=== PATIENT | male | born 1945 | race Caucasian/White ===

== ENCOUNTER 2022-07-29 15:51 | Inpatient (IN) | payer MEDICARE, OTHER ==
[2022-07-29] MEDS ORDERED: SODIUM CHLORIDE 0.9% 1,000 ML IV STA ×3 (16:18→17:36)
[2022-07-29 16:32] LABS: Basophils % (A) 0 %; Eosinophils # (A) 0.1 k/uL (0-0.7); Eosinophils % (A) 1 %; HCT 54.9 % (39.0-53.0); Lymphocytes % (A) 10 %; MCHC 32.8 g/dL (31.0-37.0); MCV 94.3 fL (80.0-100.0); Mean Platelet Volume 8.8; Monocytes # (A) 0.7 k/uL (0-1.0); Monocytes % (A) 4 %; Neutrophils # (A) 16.9 k/uL (1.3-7.7); Neutrophils % (A) 85 %; Platelet Count 431 k/uL (150-450); RBC 5.83 m/uL (4.30-5.90); RDW 13.2 % (11.5-15.5); WBC 19.9 k/uL (3.8-10.6)
--- NOTE | 2022-07-29 16:37 | XR ---
EXAMINATION TYPE: XR chest 2V DATE OF EXAM: 07/29/2022 4:32 PM COMPARISON: None TECHNIQUE: XR chest 2V Frontal and lateral views of the chest. CLINICAL INDICATION:Male, 76 years old with history of fall; FINDINGS: Lungs/Pleura: There is no evidence of pleural effusion, focal consolidation, or pneumothorax. Elevat ion of the right hemidiaphragm. Pulmonary vascularity: Unremarkable. Heart/mediastinum: Cardiomediastinal silhouette is unremarkable. Musculoskeletal: No acute osseous pathology. IMPRESSION: 1. No acute cardiopulmonary disease/process. 2. Elevation the right hemidiaphragm which could relate to diaphragmatic paralysis versus hernia. Th is can be further evaluated with sniff test as clinically indicated.
--- NOTE | 2022-07-29 16:46 | ED ---
Weakness HPI - General Chief complaint: Weakness Stated complaint: weakness/dehydrated Time Seen by Provider: 07/29/22 16:07 Source: EMS Mode of arrival: EMS Limitations: altered mental status - History of Present Illness Initial comments: Dictation was produced using [employer] dictation software. please excuse any grammatical, word or spelling errors. Chief Complaint: 76-year-old male with no known past medical history presents to the emergency department with generalized weakness History of Present Illness: 76-year-old male presents emergency Department after being found down at home. Patient was last seen at home about 10 days ago by friend. Patient does not have family lives by himself. Friends noted that he was picking up his phone call so they went to check on him. If on Friday ground. Some known how long patient was on the floor for. Patient states that he feels really weak. Denies any asymmetrical numbness tingling paresthesias. Patient does not have a history of atrial fibrillation. The ROS documented in this emergency department record has been reviewed and confirmed by me. Those systems with pertinent positive or negative responses have been documented in the HPI. All other systems are other negative and/or noncontributory. - Related Data Home Medications Medication Instructions Recorded Confirmed No Known Home Medications 07/29/22 07/29/22 Allergies Allergy/AdvReac Type Severity Reaction Status Date / Time No Known Allergies Allergy Verified 07/29/22 17:44 Review of Systems ROS Statement: Those systems with pertinent positive or pertinent negative responses have been documented in the HPI. ROS Other: All systems not noted in ROS Statement are negative. General Exam - General Exam Comments Initial Comments: PHYSICAL EXAM: General Impression: Alert and oriented x3, not in acute distress, malodorous HEENT: Normocephalic atraumatic, extra-ocular movements intact, pupils equal and reactive to light bilaterally, dry mucous membranes Cardiovascular: Tachycardic Chest: Able to complete full sentences, no retractions, no tachypnea Abdomen: abdomen soft, non-tender, non-distended, no organomegaly Musculoskeletal: Pulses present and equal in all extremities, no peripheral edema Motor: no focal deficits noted Neurological: CN II-XII grossly intact, no focal motor or sensory deficits noted Skin: Intact with no visualized rashes Psych: Normal affect and mood Limitations: altered mental status Course Vital Signs 07/29/22 07/29/2223 15:57 16:01 17:24 Temperature 98 F 98 F Pulse Rate 156 H 147 H Respiratory 20 18 Rate Blood Pressure 121/100 97/74 O2 Sat by Pulse 88 L 98 Oximetry 07/29/22 17:56 Temperature Pulse Rate 156 H Respiratory Rate Blood Pressure 107/86 O2 Sat by Pulse Oximetry EKG Findings - EKG Comments: EKG Findings:: My EKG interpretation: Ventricular rate 156, A. fib with RVR, QRS 85, QTC 375. No OH prolongation, no QTC prolongation, lateral ST depressions that V3 to V6. No old EKG for comparison. Suspicious for a rate-dependent ischemia Medical Decision Making - Medical Decision Making Case discussed with neurologist, at 6:[address] Jimenez was contacted in regards to starting patient on heparin in light of CT imaging findings. Dr. James reviewed the films and recommended that patient be started on heparin without a bolus Was pt. sent in by a medical professional or institution (, PA, ACTIVITIES ASSISTANT, urgent care, hospital, or half-way...) When possible be specific @ -No Did you speak to anyone other than the patient for history (EMS, parent, family, police, friend...)? What history was obtained from this source @ -Friends at the bedside. They're at the individuals that found patient on the ground at his home Did you review nursing and triage notes (agree or disagree)? Why? @ -I reviewed and agree with nursing and triage notes Were old charts reviewed (outside hosp., previous admission, EMS record, old EKG, old radiological studies, urgent care reports/EKG's, half-way records)? Report findings @ -No old charts were reviewed Differential Diagnosis (chest pain, altered mental status, abdominal pain women, abdominal pain men, vaginal bleeding, musculoskeletal, weakness, fever, dyspnea, syncope, headache, dizziness, GI bleed, back pain, seizure, CVA, palpatations, mental health)? @ -Differential Weakness: Hypoglycemia, shock, sepsis, hyponatremia, anemia, infection, MO, ETOH, adverse medicine reaction, overdose, stroke, this is not meant to be an all-inclusive list. EKG interpreted by me (3pts min.). @ -See above X-rays interpreted by me (1pt min.). @ -No acute processes CT interpreted by me (1pt min.). @ -Left occipital hyperdensity U/S interpreted by me (1pt. min.). @ -None done What testing was considered but not performed or refused? (CT, X-rays, U/S, labs)? Why? @ -None What meds were considered but not given or refused? Why? @ -None Did you discuss the management of the patient with other professionals (professionals i.e. DrManan, PA, ACTIVITIES ASSISTANT, lab, RT, psych nurse, social media project manager, dough molder hand, teacher, housing management officer, case advocate)? Give summary @ -Case discussed with neurologist on-call regarding initiating heparin therapy for new onset A. fib. Case also discussed with Dr. Epps for admission Was smoking cessation discussed for >3mins.? @ -No Was critical care preformed (if so, how long)? @ -33 minutes Were there social determinants of health that impacted care today? How? (Homelessness, low income, unemployed, alcoholism, drug addiction, transport ation, low edu. Level, literacy, decrease access to med. care, senior living, rehab)? @ -Lives alone Was there de-escalation of care discussed even if they declined (Discuss DNR or withdrawal of care, Hospice)? DNR status @ -No What co-morbidities impacted this encounter? (DM, HTN, Smoking, COPD, CAD, Cancer, CVA, ARF, Chemo, Hep., AIDS, mental health diagnosis, sleep apnea, morbid obesity)? @ -None Was patient admitted / discharged? Hospital course, mention meds given and route, prescriptions, significant lab abnormalities, going to OR and other pertinent info. @ -76-year-old male found down after having not being seen for approximately 10 days. Landin the emergency department via EMS. Found to be in new-onset A. fib. CT shows hypodensities in the brain suspicious for ischemic strokes. Patient case was discussed with neurologist who recommends starting heparin. Laboratory evaluation obtained. Leukocytosis of 19.9 of unclear significance. He does not have any localizing symptoms to suggest sepsis. Coag panel is unremarkable. Sodium low 152. BUN of 27. Lactic acid of 5.3. Troponin 0.057 prematurity peptide of 2000. Patient started on amiodarone after having received 2 L normal saline bolus. 4 panel viral PCR is negative. Patient be admitted with consultation cardiology. Undiagnosed new problem with uncertain prognosis? @ -New onset A. fib Drug Therapy requiring intensive monitoring for toxicity (Heparin, Nitro, Insulin, Cardizem)? @ -Yes, heparin and amiodarone Were any procedures done? @ -No Diagnosis/symptom? Acute, or Chronic, or Acute on Chronic? Uncomplicated (without systemic symptoms) or Complicated (systemic symptoms)? @ -1.New onset atrial fibrillation, complicated Side effects of treatment? @ -No Exacerbation, Progression, or Severe Exacerbation? @ -No Poses a threat to life or bodily function? How? (Chest pain, USA, MO, pneumonia, PE, COPD, DKA, ARF, appy, cholecystitis, CVA, Diverticulitis, Homicidal, Suicidal, threat to staff... and all critical care pts) @ -yes - Lab Data Result diagrams: 07/29/22 16:21 07/29/22 16:21 Lab Results 07/29/22 07/29/22 07/29/22 Range/Units 16:21 16:21 16:21 WBC 19.9 H (3.8-10.6) k/uL RBC 5.83 (4.30-5.90) m/uL Hgb 18.0 H (13.0-17.5) gm/dL Hct 54.9 H (39.0-53.0) % MCV 94.3 (80.0-100.0) fL MCH 31.0 (25.0-35.0) pg MCHC 32.8 (31.0-37.0) g/dL RDW 13.2 (11.5-15.5) % Plt Count 431 (150-450) k/uL MPV 8.8 Neutrophils % 85 % Lymphocytes % 10 % Monocytes % 4 % Eosinophils % 1 % Basophils % 0 % Neutrophils # 16.9 H (1.3-7.7) k/uL Lymphocytes # 2.0 (1.0-4.8) k/uL Monocytes # 0.7 (0-1.0) k/uL Eosinophils # 0.1 (0-0.7) k/uL Basophils # 0.0 (0-0.2) k/uL PT 12.1 H (9.0-12.0) sec INR 1.2 H (<1.2) APTT 21.5 L (22.0-30.0) sec Sodium 152 H (137-145) mmol/L Potassium 4.1 (3.5-5.1) mmol/L Chloride 113 H (98-107) mmol/L Carbon Dioxide 25 (22-30) mmol/L Anion Gap 14 mmol/L BUN 27 H (9-20) mg/dL Creatinine 1.01 (0.66-1.25) mg/dL Est GFR (CKD-EPI)AfAm 83 (>60 ml/min/1.73 sqM) Est GFR (CKD-EPI)NonAf 72 (>60 ml/min/1.73 sqM) Glucose 156 H (74-99) mg/dL Plasma Lactic Acid Hema (0.7-2.0) mmol/L Calcium 10.4 H (8.4-10.2) mg/dL Magnesium 2.5 H (1.6-2.3) mg/dL Total Bilirubin 1.7 H (0.2-1.3) mg/dL AST 66 H (17-59) U/L ALT 77 H (4-49) U/L Alkaline Phosphatase 121 (38-126) U/L Creatine Kinase 97 (55-170) U/L Troponin I (0.000-0.034) ng/mL NT-Pro-B Natriuret Pep pg/mL Total Protein 8.0 (6.3-8.2) g/dL Albumin 4.5 (3.5-5.0) g/dL TSH 2.550 (0.465-4.680) mIU/L Influenza Type A (PCR) (Not Detectd) Influenza Type B (PCR) (Not Detectd) RSV (PCR) (Not Detectd) SARS-CoV-2 (PCR) (Not Detectd) 07/29/22 07/29/22 07/29/22 Range/Units 16:21 16:21 16:21 WBC (3.8-10.6) k/uL RBC (4.30-5.90) m/uL Hgb (13.0-17.5) gm/dL Hct (39.0-53.0) % MCV (80.0-100.0) fL MCH (25.0-35.0) pg MCHC (31.0-37.0) g/dL RDW (11.5-15.5) % Plt Count (150-450) k/uL MPV Neutrophils % % Lymphocytes % % Monocytes % % Eosinophils % % Basophils % % Neutrophils # (1.3-7.7) k/uL Lymphocytes # (1.0-4.8) k/uL Monocytes # (0-1.0) k/uL Eosinophils # (0-0.7) k/uL Basophils # (0-0.2) k/uL PT (9.0-12.0) sec INR (<1.2) APTT (22.0-30.0) sec Sodium (137-145) mmol/L Potassium (3.5-5.1) mmol/L Chloride (98-107) mmol/L Carbon Dioxide (22-30) mmol/L Anion Gap mmol/L BUN (9-20) mg/dL Creatinine (0.66-1.25) mg/dL Est GFR (CKD-EPI)AfAm (>60 ml/min/1.73 sqM) Est GFR (CKD-EPI)NonAf (>60 ml/min/1.73 sqM) Glucose (74-99) mg/dL Plasma Lactic Acid Hema 5.3 H* (0.7-2.0) mmol/L Calcium (8.4-10.2) mg/dL Magnesium (1.6-2.3) mg/dL Total Bilirubin (0.2-1.3) mg/dL AST (17-59) U/L ALT (4-49) U/L Alkaline Phosphatase (38-126) U/L Creatine Kinase (55-170) U/L Troponin I 0.057 H* (0.000-0.034) ng/mL NT-Pro-B Natriuret Pep 2990 pg/mL Total Protein (6.3-8.2) g/dL Albumin (3.5-5.0) g/dL TSH (0.465-4.680) mIU/L Influenza Type A (PCR) (Not Detectd) Influenza Type B (PCR) (Not Detectd) RSV (PCR) (Not Detectd) SARS-CoV-2 (PCR) (Not Detectd) 07/29/22 Range/Units 17:11 WBC (3.8-10.6) k/uL RBC (4.30-5.90) m/uL Hgb (13.0-17.5) gm/dL Hct (39.0-53.0) % MCV (80.0-100.0) fL MCH (25.0-35.0) pg MCHC (31.0-37.0) g/dL RDW (11.5-15.5) % Plt Count (150-450) k/uL MPV Neutrophils % % Lymphocytes % % Monocytes % % Eosinophils % % Basophils % % Neutrophils # (1.3-7.7) k/uL Lymphocytes # (1.0-4.8) k/uL Monocytes # (0-1.0) k/uL Eosinophils # (0-0.7) k/uL Basophils # (0-0.2) k/uL PT (9.0-12.0) sec INR (<1.2) APTT (22.0-30.0) sec Sodium (137-145) mmol/L Potassium (3.5-5.1) mmol/L Chloride (98-107) mmol/L Carbon Dioxide (22-30) mmol/L Anion Gap mmol/L BUN (9-20) mg/dL Creatinine (0.66-1.25) mg/dL Est GFR (CKD-EPI)AfAm (>60 ml/min/1.73 sqM) Est GFR (CKD-EPI)NonAf (>60 ml/min/1.73 sqM) Glucose (74-99) mg/dL Plasma Lactic Acid Hema (0.7-2.0) mmol/L Calcium (8.4-10.2) mg/dL Magnesium (1.6-2.3) mg/dL Total Bilirubin (0.2-1.3) mg/dL AST (17-59) U/L ALT (4-49) U/L Alkaline Phosphatase (38-126) U/L Creatine Kinase (55-170) U/L Troponin I (0.000-0.034) ng/mL NT-Pro-B Natriuret Pep pg/mL Total Protein (6.3-8.2) g/dL Albumin (3.5-5.0) g/dL TSH (0.465-4.680) mIU/L Influenza Type A (PCR) Not Detected (Not Detectd) Influenza Type B (PCR) Not Detected (Not Detectd) RSV (PCR) Not Detected (Not Detectd) SARS-CoV-2 (PCR) Not Detected (Not Detectd) Disposition Clinical Impression: Afib Disposition: ADMITTED IP TO THIS [facility] Condition: Serious Referrals: None,Stated [Primary Care Provider] - 1-2 days Decision Time: 18:23
[2022-07-29 16:59] LABS: Albumin 4.5 g/dL (3.5-5.0); Calcium 10.4 mg/dL (8.4-10.2); Magnesium 2.5 mg/dL (1.6-2.3); Potassium 4.1 mmol/L (3.5-5.1); Total Bilirubin 1.7 mg/dL (0.2-1.3)
[2022-07-29 17:08] LABS: INR 1.2 (<1.2); Partial Thromboplastin Time 21.5 sec (22.0-30.0); Prothrombin Time 12.1 sec (9.0-12.0)
--- NOTE | 2022-07-29 17:29 | CT ---
EXAMINATION TYPE: CT brain usha shirley DATE OF EXAM: 07/29/2022 COMPARISON: None HISTORY: fall CT DLP: 1393.5 mGycm, Automated exposure control for dose reduction was used. CONTRAST: Patient injected with 0 mL of Isovue 300. CT of the brain is performed utilizing 3 mm thick sections through the posterior fossa and 3 mm thick sections through the remaining calvarium. Study is performed within 24 hours of arrival to the hospital. No abnormal hyperdensity is present to suggest an acute intracranial hemorrhage. No mass lesion is evident. There is mild scattered periventricular white matter hypodensity, likely on the basis of chronic whit e matter ischemic change. There is hypodensity through the left thalamus of indeterminate age. Lacuna r infarct or chronic white matter changes could be considered. There is hypodensity within the left occipital lobe with some local effacement of sulci. Consider acu te occipital lobe infarct. Ventricles and sulci are prominent for the patient age. Paranasal sinuses and mastoid air cells within the [id number] are clear. IMPRESSIONS: 1. Hypodensity within the left occipital lobe with effacement of adjacent sulci. Consider acute infar ct. This could be followed with MRI. 2. Hypodensity within the left thalamus is of indeterminate age. This could be chronic white matter i schemic changes. Acute lacunar infarct can be considered. 3. Additional periventricular chronic appearing white matter ischemic-type changes. CT cervical spine. COMPARISON: None CT of the cervical spine is performed in the axial plane at 2 mm thick sections. Reconstructed image s in the coronal, and sagittal plane are reviewed on the computer. No acute fractures are evident. Vertebral body heights are preserved. No spinal canal stenosis is evident. Uncovertebral joint hypertrophy and facet hypertrophy is contributing to severe foraminal stenosis. T his is notable at C3-4 on the left, right C4-5 right and to a lesser degree left C5-6 and moderate C6 -7 foraminal stenosis. Anterior vertebral body spurring is present C4-C7. There is narrowing of disc height at C5-6 C6-7 and C7-T1 prevertebral space is normal. There is a mild kyphosis through the cerv ical spine. Posterior spinal lamellar line is intact. IMPRESSIONS: 1. No acute osseous abnormality cervical spine. 2. Cervical kyphosis which could be related to patient positioning or muscle spasm. 3. Severe foraminal stenosis discussed above.
[2022-07-29] MEDS ORDERED: DEXTROSE 5% IN WATER 100 ML with AMIODARONE 150 MG IV ONE (17:45)
[2022-07-29] MEDS ORDERED: AMIODARONE 360 MG in DEXTROSE 5% IN WATER 200 ML IV ONE ×2 (18:00)
[2022-07-29] MEDS ORDERED: HEPARIN SODIUM 1,000 UN/ML (10ML VL) IV PRN (18:12)
[2022-07-29] MEDS ORDERED: NALOXONE 0.4 MG/ML 1 ML VIAL IV PRN (18:21)
[2022-07-29] MEDS ORDERED: ONDANSETRON 4 MG/2 ML VIAL IVP PRN (18:21)
[2022-07-29] MEDS ORDERED: ASPIRIN 81 MG PO STA (18:22)
[2022-07-29] MEDS: PANTOPRAZOLE 40 MG/10 ML VIAL IV SCH (18:50)
[2022-07-29] MEDS: HEPARIN SOD,PORK IN 0.45% NACL 25,000 UNIT in 0.45% NACL 1 250ML.BAG IV SCH (18:53)
[2022-07-29] MEDS ORDERED: cefTRIAXone 1,000 MG VIAL (IM USE) IM SCH (20:00)
[2022-07-29] MEDS: SODIUM CHLORIDE 0.9% 1,000 ML IV SCH (21:40)
--- NOTE | 2022-07-29 21:57 | CT ---
EXAMINATION TYPE: CT chest wo con DATE OF EXAM: 07/29/2022 COMPARISON: None HISTORY: hypoxia CT DLP: 463.6. mGycm, Automated exposure control for dose reduction was used. CONTRAST: Performed injected with 0 mL of Isovue 300. TECHNIQUE: Axial images were obtained at 5 mm thick sections. Reconstructed images are reviewed on [employer] computer in the coronal plane. FINDINGS: Portion of the thyroid visualized is normal. No suspicious lung nodules or focal infiltrates are present. No enlarged mediastinal or hilar adenopathy is evident. The ascending aorta diameter at the level o f the main pulmonary artery is 4.2 cm. The main pulmonary artery diameter at the bifurcation is 4.1 cm. Coronary artery calcifications present. There appears to be some tortuosity of the esophagus. Limited CT sections are obtained through the up per abdomen. There is a cyst within the inferior right tip of the liver. IMPRESSIONS: 1. No acute pulmonary process radiographically apparent.
[2022-07-30] MEDS ORDERED: AMIODARONE 450 MG in DEXTROSE 5% IN WATER 250 ML IV SCH ×2
[2022-07-30] MEDS: SODIUM CHLORIDE 0.9% 1,000 ML IV SCH ×3 (02:35→18:27)
[2022-07-30] MEDS ORDERED: IPRATROPIUM-ALBUTEROL 3 ML NEB INHALATION PRN (03:55)
--- NOTE | 2022-07-30 04:05 | P.CNPUL ---
History of Present Illness Consult date: 07/30/22 Requesting physician: Alpesh Epps Reason for consult: hypoxemia Chief complaint: Generalized weakness History of present illness: I am seeing this patient in new consultation today 07/30/2022 in the emergency room for increased oxygen demands. Patient is a 76-year-old male who is brought in by his friends yesterday after being found down at his home. Patient is currently confused and a poor historian. Apparently, the patient was last seen well 10 days ago by his friends. Patient does not have any family and lives at home alone. He reportedly has not been to a doctor in some time. He is a current smoker. On arrival to the emergency room, patient was found to be in atrial fibrillation with rapid ventricular rate. He was started on amiodarone which is currently infusing at a rate of 0.5 mg/m. Patient also has low intensity heparin infusing at 1143 units per hour. Most recent aPTT was subtherapeutic at 35.8. Troponins were mildly elevated at 0.057. NT proBNP mildly elevated at 2990. He was also hypoxic on arrival, and is currently on 3 L nasal cannula oxygenating at 100%. This could probably be weaned down. Initial chest x-ray showed no acute cardiopulmonary process with some elevation of the right hemidiaphragm which could be related to diaphragmatic paralysis versus hernia. A follow-up chest CT also showed no acute cardiopulmonary process. He was negative for COVID-19, influenza, RSV. Procalcitonin level was low at 0.07. Patient's CT of the brain and C-spine without contrast showed a hypodense area within the left occipital lobe with effacement of adjacent foci and could indicate acute infarct. There was also a hypodense area within the left thalamus of indeterminate age. Recommended MRI follow-up. Patient's CBC on arrival showed some leukocytosis with a WBC count of 19.9, hemoglobin 18, hematocrit 54.9, platelets 431,000. Patient's BMP on arrival showed a sodium 152, potassium 4.1, chloride 113, serum CO2 25, BUN 27, creatinine 1.01, glucose 156. Lactic acid level was elevated on admission, and is down to 1.2. Patient was given 2 L normal saline bolus in the emergency room. No IV maintenance fluids are infusing. Currently, patient's vital signs are stable. Review of Systems Unable to obtain a review of systems due to patient being confused Medications and Allergies Home Medications Medication Instructions Recorded Confirmed Type No Known Home Medications 07/29/22 07/29/22 History Allergies Allergy/AdvReac Type Severity Reaction Status Date / Time No Known Allergies Allergy Verified 07/29/22 17:44 Physical Exam Vitals: Vital Signs Temp Pulse Resp BP Pulse Ox 07/30/22 02:00 105 H 15 124/99 97 07/29/22 23:46 116 H 15 164/112 100 07/29/22 23:00 134 H 15 98 07/29/22 20:00 133 H 20 144/78 94 L 07/29/22 17:56 156 H 107/86 07/29/22 17:24 147 H 18 97/74 98 07/29/22 16:01 98 F 156 H 20 121/100 88 L 07/29/22 15:57 98 F Intake and Output 07/29/22 07/29/22 07/30/22 14:59 22:59 06:59 Intake Total 74.628 Balance 74.628 Intake: Intake, IV Titration 74.628 Amount Heparin Sod,Pork in 0.45% 74.628 NaCl 25,000 unit In 0.45 % NaCl 1 250ml.bag @ 12 UNITS/KG/HR 9.798 mls/hr IV .Q24H [facility] Rx#: [id number] Other: Weight 81.647 kg GENERAL EXAM: Alert but disoriented 76-year-old male, appearing disheveled, he is comfortable in no apparent distress. HEAD: Normocephalic and atraumatic EYES: Normal reaction of pupils, equal size. NOSE: Clear with pink turbinates. THROAT: No erythema or exudates. NECK: No masses, no JVD. CHEST: No chest wall deformity. LUNGS: Equal air entry with no crackles, wheeze, rhonchi or dullness. On 3 L nasal cannula. No conversational dyspnea or accessory muscle use.. CVS: S1 and S2 normal with no audible murmur, regular rhythm. No extra heart sounds ABDOMEN: No hepatosplenomegaly, active bowel sounds, no guarding or rigidity. SPINE: No scoliosis or deformity SKIN: No rashes CENTRAL NERVOUS SYSTEM: No focal deficits, tone is normal in all 4 extremities. He is disoriented 2 EXTREMITIES: There is no peripheral edema, clubbing, or cyanosis. Peripheral pu lses are intact. Results - Laboratory Findings CBC and BMP: 07/30/22 08:27 07/30/22 08:27 PT/INR, D-dimer PT 12.1 sec (9.0-12.0) H 07/29/22 16:21 INR 1.2 (<1.2) H 07/29/22 16:21 Abnormal lab findings: Abnormal Labs 07/29/22 07/29/22 07/29/22 16:21 16:21 16:21 WBC 19.9 H Hgb 18.0 H Hct 54.9 H Neutrophils # 16.9 H PT 12.1 H INR 1.2 H APTT 21.5 L Sodium 152 H Chloride 113 H BUN 27 H Glucose 156 H Plasma Lactic Acid Hema Calcium 10.4 H Magnesium 2.5 H Total Bilirubin 1.7 H AST 66 H ALT 77 H Troponin I 07/29/22 07/29/22 07/29/22 16:21 16:21 19:55 WBC Hgb Hct Neutrophils # PT INR APTT Sodium Chloride BUN Glucose Plasma Lactic Acid Hema 5.3 H* 3.0 H* Calcium Magnesium Total Bilirubin AST ALT Troponin I 0.057 H* 07/30/22 00:53 WBC Hgb Hct Neutrophils # PT INR APTT 35.8 H Sodium Chloride BUN Glucose Plasma Lactic Acid Hema Calcium Magnesium Total Bilirubin AST ALT Troponin I - Diagnostic Findings Chest x-ray: image reviewed CT scan - chest: image reviewed Assessment and Plan Assessment: Suspected COPD exacerbation. Patient has a significant smoking history. He was negative for COVID-19, influenza, RSV. Chest x-ray and chest CT show no sign of pneumonia or focal consolidation. Procalcitonin level was low at 0.07. Acute hypoxic respiratory failure secondary to above, currently on 3 L nasal cannula New-onset atrial fibrillation with rapid ventricular rate, heart rate currently under better control with amiodarone infusion at 0.5 mg/m. Anticoagulated with low intensity heparin infusion per protocol. Elevated troponins likely secondary to supply/demand mismatch Suspected left occipital lobe acute infarct with unknown last well time. CT of the brain and C-spine without contrast showed a hypodense area within the left occipital lobe with effacement of the adjacent sulci. There was also hypodense area within the left thalamus of indeterminate age. There is a recommendation for follow-up MRI. Acute confusion, possibly secondary to above Dehydration Lactic acidosis, resolved Nicotine dependence Plan: Patient's medication, labs, chest x-ray and chest CT were reviewed Continue supplemental oxygen to maintain oxygen saturation of 92% or greater Start patient on bronchodilators Start the patient on budesonide and formoterol inhalation procalcitonin level was low at 0.07, will stop empiric antibiotics Continue amiodarone and heparin infusions per protocol Neurology is on the case Neuro checks Check creatinine kinase and repeat labs in the morning Patient will be admitted to the selective care unit once bed available We will continue to follow I have personally seen and examined the patient, performed the documentation and the assessment and plan as written. Number of minutes spent on the visit:20 Joint evaluation done with the nurse practitioner. Again above-mentioned plan. This evaluation was done in more than 30 minutes. Echocardiogram is to follow. Time with Patient: Greater than 30
[2022-07-30] MEDS: FORMOTEROL FUMARATE 20 MCG/2 ML NEBU INHALATION SCH ×2 (07:39→19:23)
[2022-07-30] MEDS: BUDESONIDE 1 MG/2 ML NEBU INHALATION SCH ×2 (07:39→19:23)
[2022-07-30] MEDS: IPRATROPIUM-ALBUTEROL 3 ML NEB INHALATION SCH ×4 (07:39→19:23)
[2022-07-30] MEDS: ASPIRIN 81 MG PO SCH (08:34)
[2022-07-30] MEDS: METOPROLOL TARTRATE 50 MG TAB PO SCH ×2 (08:35→21:32)
[2022-07-30 08:42] LABS: Basophils % (A) 0 %; Eosinophils # (A) 0.4 k/uL (0-0.7); Eosinophils % (A) 3 %; Lymphocytes # (A) 2.1 k/uL (1.0-4.8); Lymphocytes % (A) 18 %; MCHC 32.9 g/dL (31.0-37.0); MCV 94.2 fL (80.0-100.0); Mean Platelet Volume 8.4; Monocytes # (A) 0.5 k/uL (0-1.0); Monocytes % (A) 4 %; Neutrophils # (A) 8.6 k/uL (1.3-7.7); Neutrophils % (A) 73 %; Platelet Count 309 k/uL (150-450); RBC 4.57 m/uL (4.30-5.90); RDW 13.3 % (11.5-15.5); WBC 11.7 k/uL (3.8-10.6)
--- NOTE | 2022-07-30 08:55 | HP ---
HISTORY AND PHYSICAL HISTORY OF PRESENT ILLNESS: A 76-year-old white male came into the hospital. He was found on the floor by his friends, who brought him to the hospital. He was found to be atrial fibrillation with RVR with possible stroke. CT scan of the head shows 2 strokes in the past, possibly acute. Neurology has seen him. Pulmonary was consulted for hypoxemia, Cardiology for atrial fibrillation with RVR. He says he has been doing well. He has no severe health problems until he was found like on the ground unable to get up. REVIEW OF SYSTEMS: A 14-point review of systems otherwise negative. Exam was done in the ER. MEDICATIONS: None. ALLERGIES: None. PHYSICAL EXAMINATION: GENERAL: He looks kind of disheveled. VITAL SIGNS: He wears 4 L of oxygen, saturations in the mid 90s. Blood pressure is 90s to 120s over 70s to 100s. He has heart rates in the 130s to 140s, irregularly irregular rhythm. LUNGS: Show rales at the bases. GI: Soft. HEMATOLOGY: Negative Homans. PSYCH: Fair mood and affect. INTEGUMENT: Dry skin turgor. EKG, atrial fibrillation, RVR, irregularly irregular rate. Dr. Jimenez, Neurologist was consulted. Due to the CT findings, he was started on heparin without a bolus as there is questionable 2 strokes. It showed atrial fibrillation with RVR. Cardiology and Pulmonary have been consulted. Started on amiodarone drip. Beta blockers by dishcloth folder, Heparin by neurologist. Prognosis is guarded. He has new onset atrial fibrillation. He was started on empiric antibiotics. White count 19.9, hemoglobin of 18 with a left shift 16.9 to rule out aspiration. Procalcitonin level is pending. Glucose 156, total bilirubin of 1.7, TSH 2.5, albumin 4.5. Creatine kinase 97. Waiting for procalcitonin. Started empirically on antibiotics for now due to leukocytosis. Stroke per Neurology being worked up. Lactic acid being treated with fluids. Troponin is 0.057. BNP is 2990. We ordered echo, CT of the chest. Prognosis is guarded. Wait for further orders. Psych consult. MMODL / IJN: [id number] /
[2022-07-30 09:00] LABS: HGB 14.2 gm/dL (13.0-17.5)
[2022-07-30 09:04] LABS: ALT 55 U/L (4-49); AST 44 U/L (17-59); African American GFR (CKD) >90 (>60 ml/min/1.73 sqM); Alkaline Phosphatase 83 U/L (38-126); Anion Gap 5 mmol/L; Blood Urea Nitrogen 21 mg/dL (9-20); Calcium 8.3 mg/dL (8.4-10.2); Carbon Dioxide 27 mmol/L (22-30); Chloride 115 mmol/L (98-107); Glucose 110 mg/dL (74-99); Non-African American GFR(CKD) 85 (>60 ml/min/1.73 sqM); Potassium 3.5 mmol/L (3.5-5.1); Sodium 147 mmol/L (137-145); Total Bilirubin 1.1 mg/dL (0.2-1.3); Total Protein 5.7 g/dL (6.3-8.2)
[2022-07-30 09:21] LABS: Creatine Kinase 188 U/L (55-170)
--- NOTE | 2022-07-30 10:10 | P.CRDCN ---
History of Present Illness History of present illness: HISTORY OF PRESENT ILLNESS: This is a 76-year-old male with a past medical history significant for nicotine dependence and occasional alcohol use. 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 We have been asked to see the patient in consultation for new- onset atrial fibrillation. Patient examined at the bedside in the emergency room. The patient was a poorly brought to the hospital after he was found down at his home. According to ER records the last time he was seen by a friend was approximately 10 days ago. There is no family at the bedside. The patient is confused and is a poor historian. The patient answered "not that I remember" to a majority of questions asked to him. The patient does not remember coming to the hospital or the events prior to coming to the hospital. He is unsure if he was having shortness of breath or chest pain. The patient does report he is not very active at home. He states he does not take any medications at home. The patient reports taking occasional alcohol but did not quantify the amount. The patient is also a current cigarette smoker. The patient was found to be in atrial fibrillation with RVR and he presented to the hospital. He was started on IV heparin and IV amiodarone. The patient remains in atrial fibrillation with a heart rate around 110 at the time of examination. Patient was asked if he had a history of atrial fibrillation which he states "not that I remember". * EKG reveals atrial fibrillation with RVR * Chest xray negative for acute process. Elevation of the right hemidiaphragm which could relate to diaphragmatic paralysis versus hernia. * CT of the brain: Hypodensity within the left occipital lobe with effacement of adjacent foci. Consider acute infarct. Hypodensity within the left thalamus is of indeterminate age. This could be chronic white matter ischemic changes. Acute lacunar infarct can be considered. * Chest CT: No acute pulmonary process visualized. Coronary artery calcifications present. * Laboratory data: W BC 11.7. Hemoglobin 14.2. Platelet count 209. Sodium 147. Potassium 3.5. BUN 21. Creatinine 0.84. Lactic acid 3.0. Repeat 1.2. ProBNP 2380. TSH 2.550. Troponin 0.057. * Current home cardiac medications include none REVIEW OF SYSTEMS: At the time of my exam: CONSTITUTIONAL: Denies fever or chills. HEENT: Denies blurred vision, vision changes, or eye pain. Denies hemoptysis CARDIOVASCULAR: Denies chest pain. Denies orthopnea. Denies PND. Denies palpitations RESPIRATORY: Denies shortness of breath. GASTROINTESTINAL: Denies abdominal pain. Denies nausea or vomiting. HEMATOLOGIC: Denies bleeding disorders. GENITOURINARY: Denies any blood in urine. SKIN: Denies pruitis. Denies rash. PHYSICAL EXAM: VITAL SIGNS: Reviewed. GENERAL: Well-developed in no acute distress. HEENT: Head is normocephalic. Pupils are equal, round. Sclerae anicteric. Mucous membranes of the mouth are moist. Neck supple. No JVD or thyromegaly LUNGS: Respirations even and unlabored. Lungs essentially clear to auscultation bilaterally. HEART: Tachycardic. Irregular rate and rhythm. S1 and S2 heard. ABDOMEN: Soft. Nondistended. Nontender. EXTREMITIES: Normal range of motion. No clubbing or cyanosis. Peripheral pulses intact. No lower extremity edema NEUROLOGIC: Awake and alert. Oriented x 1. ASSESSMENT: Altered mental status Lactic acidosis, improving Acute hypoxic respiratory failure Atrial fibrillation with RVR, duration unknown Suspected left occipital lobe acute infarct, possible acute lacunar infarct per CT Elevated troponin, not suggestive of acute coronary syndrome, likely type II NV Mildly elevated LFTs Nicotine dependence PLAN: Obtain 2-D echo to assess cardiac structure and function Continue IV heparin Discontinue IV amiodarone Add aspirin 81 mg daily Add metoprolol tartrate 50 mg twice a day Continue telemetry monitoring TSH checked and within normal limits Check lipid panel Repeat CMP in AM. Patient with elevated LFTs on admission. If resolved by tomorrow, will begin statin therapy Neurology consulted. Await evaluation and recommendations. Further recommendations pending patient's course Nurse practitioner note has been reviewed by physician. Signing provider agrees with the documented findings, assessment, and plan of care. Medications and Allergies Home Medications Medication Instructions Recorded Confirmed Type No Known Home Medications 07/29/22 07/29/22 History Allergies Allergy/AdvReac Type Severity Reaction Status Date / Time No Known Allergies Allergy Verified 07/29/22 17:44 Physical Exam Vitals: Vital Signs Temp Pulse Resp BP Pulse Ox 07/30/22 07:59 110 H 07/30/22 07:49 105 H 07/30/22 07:40 105 H 07/30/22 07:37 97.6 F 118 H 18 135/108 98 07/30/22 06:00 105 H 15 07/30/22 04:55 105 H 19 134/98 97 07/30/22 04:00 108 H 07/30/22 03:00 112 H 07/30/22 02:00 105 H 15 124/99 97 07/29/22 23:46 116 H 15 164/112 100 07/29/22 23:00 134 H 15 98 07/29/22 20:00 133 H 20 144/78 94 L 07/29/22 17:56 156 H 107/86 07/29/22 17:24 147 H 18 97/74 98 07/29/22 16:01 98 F 156 H 20 121/100 88 L 07/29/22 15:57 98 F Intake and Output 07/29/22 07/30/22 07/30/22 22:59 06:59 14:59 Intake Total 74.628 Balance 74.628 Intake: Intake, IV Titration 74.628 Amount Heparin Sod,Pork in 0.45% 74.628 NaCl 25,000 unit In 0.45 % NaCl 1 250ml.bag @ 12 UNITS/KG/HR 9.798 mls/hr IV .Q24H [facility] Rx#: [id number] Other: Weight 81.647 kg Results 07/30/22 08:27 07/30/22 08:27 Cardiac Enzymes 07/29/22 07/29/22 Range/Units 16:21 16:21 AST 66 H (17-59) U/L Troponin I 0.057 H* (0.000-0.034) ng/mL Coagulation 07/29/22 07/30/22 Range/Units 16:21 00:53 PT 12.1 H (9.0-12.0) sec APTT 21.5 L 35.8 H (22.0-30.0) sec CBC 07/29/22 Range/Units 16:21 WBC 19.9 H (3.8-10.6) k/uL RBC 5.83 (4.30-5.90) m/uL Hgb 18.0 H (13.0-17.5) gm/dL Hct 54.9 H (39.0-53.0) % Plt Count 431 (150-450) k/uL Comprehensive Metabolic Panel 07/29/22 Range/Units 16:21 Sodium 152 H (137-145) mmol/L Potassium 4.1 (3.5-5.1) mmol/L Chloride 113 H (98-107) mmol/L Carbon Dioxide 25 (22-30) mmol/L BUN 27 H (9-20) mg/dL Creatinine 1.01 (0.66-1.25) mg/dL Glucose 156 H (74-99) mg/dL Calcium 10.4 H (8.4-10.2) mg/dL AST 66 H (17-59) U/L ALT 77 H (4-49) U/L Alkaline Phosphatase 121 (38-126) U/L Total Protein 8.0 (6.3-8.2) g/dL Albumin 4.5 (3.5-5.0) g/dL Current Medications Generic Name Dose Route Start Last Admin Trade Name Freq PRN Reason Stop Dose Admin Albuterol/Ipratropium 3 ml 07/30/22 08:00 07/30/22 07:39 Ipratropium-Albuterol 3 Ml Neb INHALATION 3 ml RT-QID [facility] Administration Albuterol/Ipratropium 3 ml 07/30/22 03:55 Ipratropium-Albuterol 3 Ml Neb INHALATION RT-Q2H PRN Shortness Of Breath Or Wheezing Budesonide 1 mg 07/30/22 08:00 07/30/22 07:39 Budesonide 1 Mg/2 Ml Nebu INHALATION 1 mg RT-BID [facility] Administration Formoterol Fumarate 20 mcg 07/30/22 08:00 07/30/22 07:39 Formoterol Fumarate 20 Mcg/2 Ml Nebu INHALATION 20 mcg RT-BID [facility] Administration Heparin Sodium (Porcine) 0 unit 07/29/22 18:12 Heparin Sodium 1,000 Un/Ml (10ml Vl) IV PER PROTOCOL PRN Low PTT Protocol Amiodarone HCl 450 mg/ 250 mls @ 16.667 mls/hr 07/30/22 00:00 07/29/22 23:57 Dextrose/Water IV 07/30/22 17:59 0.5 mg/min .Q15H [facility] 16.667 mls/hr Administration Protocol 0.5 MG/MIN Heparin Sodium/Sodium Chloride 250 mls @ 9.798 mls/hr 07/29/22 18:15 07/30/22 02:30 25,000 unit/ Sodium Chloride IV 14 units/kg/hr .Q24H [facility] 11.431 mls/hr Titration Protocol 12 UNITS/KG/HR Sodium Chloride 1,000 mls @ 130 mls/hr 07/29/22 18:30 07/30/22 02:35 Saline 0.9% IV Not Given .Q7H42M [facility] Naloxone HCl 0.2 mg 07/29/22 18:21 Naloxone 0.4 Mg/Ml 1 Ml Vial IV Q2M PRN Opioid Reversal Ondansetron HCl 4 mg 07/29/22 18:21 Ondansetron 4 Mg/2 Ml Vial IVP Q8HR PRN Nausea And Vomiting Pantoprazole Sodium 40 mg 07/29/22 18:30 07/29/22 18:50 Pantoprazole 40 Mg/10 Ml Vial IV 40 mg DAILY [facility] Administration Intake and Output 07/29/22 07/30/22 07/30/22 22:59 06:59 14:59 Intake Total 74.628 Balance 74.628 Intake: Intake, IV Titration 74.628 Amount Heparin Sod,Pork in 0.45% 74.628 NaCl 25,000 unit In 0.45 % NaCl 1 250ml.bag @ 12 UNITS/KG/HR 9.798 mls/hr IV .Q24H [facility] Rx#: [id number] Other: Weight 81.647 kg 07/29/22 16:21 07/29/22 16:21
--- NOTE | 2022-07-30 14:09 | P.CNNES ---
History of Present Illness Consult date: 07/30/22 Requesting physician: Reza Dominguez Reason for Consult: Abnormal CT History of Present Illness: Patient is a 76-year-old right-handed male, who lives by himself, healthy, does not see medical doctor, came to the hospital yesterday at 3:51 PM after he was found laying on the ground in his bedroom for uncertain period of time. Patient's 2 close friends were present, who are also his caregivers. Patient does not have any family. Apparently for the last 1 week, patient was not answering to their phone call, therefore they went to do welfare check on him, and found him laying on the ground in his bedroom. It is uncertain for how long he was on the ground, but no one has been able to contact him for a week. He was not talking well, not making a lot of sense, he was too weak and has to be carried to the car and the family brought him to the hospital. No signs of trauma. Patient's friend states that prior to this past 1 week, he speaks completely normally, uses complex words and is very intelligent. No history of seizures. The friends did not notice any facial droop, paralysis. The friends also mentioned that for last 3 months, he has been having trouble with lower limbs, as "his legs are not working properly". He has started using a walker. He usually sits in the couch, but goes out to eat and uses his walker. He denies by himself. He years well. Vital signs on arrival blood pressure 121/100, which came down to 97/74 and then 107/86, pulse rate 156, temperature 98.0. Chest x-ray revealed no acute cardiopulmonary process. Elevation of the right hemidiaphragm which could relate to diaphragmatic paralysis versus hernia. This can be further evaluated with sniff test. EKG shows atrial fibrillation with rapid ventricular rate with heart rate of 156. CT chest revealed no acute cardiopulmonary process. CT had revealed hypodensity within the left occipital lobe with effacement of adjacent sulci. Consider acute infarct. This could be followed with MRI. Hypodensity within the left thalamus is of indeterminate age. This could be chronic white matter ischemic changes. Acute lacunar infarct can be considered. CT of the cervical spine showed no acute osseous abnormality of the cervical spine. Cervical kyphosis which could be related to patient positioning her muscle spasm. Severe foraminal stenosis, notable at C3 4 on the left, C4 5 on the right and to lesser degree C5 6 on the left. Blood test shows WBC 19.9 hemoglobin 18.0, platelets are normal. INR 1.2, sodium 152 potassium 4.1, BUN 27 creatinine 1.01. Lactate was 5.3, which came down to 3.0. AST is 66, ALT 77. Troponin borderline elevated. TSH normal. Influenza, RSV and quintana virus PCR negative. Patient's WBC improved to 11.7, sodium 147 and BUN 21. Patient has smoked 4 packs per day for quite some time, quit 25 years ago. He does not drink alcohol, does not use any marijuana. Patient's friends also mentioned that about 2 weeks ago he had complained once that he was not feeling good and he had runs coming out of both ends. The suspected some gastroenteritis at that time. Review of Systems Constitutional: Denies chills, Denies fever Eyes: right loss of vision, denies blurred vision, denies pain Ears: bilateral: decreased hearing, deny: earache Ears, nose, mouth and throat: Denies headache, Denies sore throat, Denies vertigo Cardiovascular: Reports shortness of breath, Denies chest pain Respiratory: Denies cough, Denies excessive sputum Gastrointestinal: Denies abdominal pain, Denies diarrhea, Denies nausea, Denies vomiting Genitourinary: Denies dysuria, Denies flank pain, Denies incontinence Musculoskeletal: Denies low back pain, Denies myalgias, Denies neck pain Integumentary: Denies pruritus, Denies rash Neurological: Reports as per HPI, Reports gait dysfunction Psychiatric: Denies anxiety, Denies depression, Denies memory loss Endocrine: Reports fatigue, Reports weight change Hematologic/Lymphatic: Denies easy bleeding, Denies easy bruising Past Medical History - Past Family History Mother Additional Family Medical History / Comment(s): of old age Father Family Medical History: Unable to Obtain Medications and Allergies Home Medications Medication Instructions Recorded Confirmed Type No Known Home Medications 07/29/22 07/29/22 History Allergies Allergy/AdvReac Type Severity Reaction Status Date / Time No Known Allergies Allergy Verified 07/29/22 17:44 Physical Examination - Vital Signs Vital Signs: Vital Signs Temp Pulse Resp BP Pulse Ox 07/30/22 07:59 110 H 07/30/22 07:49 105 H 07/30/22 07:40 105 H 07/30/22 07:37 97.6 F 118 H 18 135/108 98 07/30/22 06:00 105 H 15 07/30/22 04:55 105 H 19 134/98 97 07/30/22 04:00 108 H 07/30/22 03:00 112 H 07/30/22 02:00 105 H 15 124/99 97 07/29/22 23:46 116 H 15 164/112 100 07/29/22 23:00 134 H 15 98 07/29/22 20:00 133 H 20 144/78 94 L 07/29/22 17:56 156 H 107/86 07/29/22 17:24 147 H 18 97/74 98 07/29/22 16:01 98 F 156 H 20 121/100 88 L 07/29/22 15:57 98 F Intake and Output 07/29/22 07/30/22 07/30/22 22:59 06:59 14:59 Intake Total 74.628 Balance 74.628 Intake: Intake, IV Titration 74.628 Amount Heparin Sod,Pork in 0.45% 74.628 NaCl 25,000 unit In 0.45 % NaCl 1 250ml.bag @ 12 UNITS/KG/HR 9.798 mls/hr IV .Q24H [facility] Rx#: [id number] Other: Weight 81.647 kg Patient is an elderly male, very pleasant in no acute distress. Patient is alert awake. He knows his name, and things it is November and the year is 1992. He states that he lives in [facility] is not correct. He knows that he lives in [place] and knows name of the current president. He has slight difficulty with word finding. He was able to name objects like "pen, and knuckles", was not able to name earlobe. He can repeat very well. No obvious dysarthria. Attention, concentration is intact and fund of knowledge is slightly limited. On cranial nerve examination, pupils are equal, round and reacting to light, visual chinchilla revealed complete right homonymous hemianopia. Extraocular muscles are intact with no nystagmus. Patient has very slight right facial asymmetry. His tongue protrudes to the midline. Palatal elevation and sensation normal, hearing is slightly decreased for finger rubbing and shoulder shrug normal, facial sensation normal. On muscle strength testing, there is mild right pronation, no drift. The str ength is (right/left) hip flexion 4/5, hip adduction 5/5, hip abduction 5-/5, ankle dorsiflexion 5/5. The strength is normal in both upper limbs. Deep tendon reflexes are (right/left) biceps 2/1, brachioradialis 2/1, knee 2/2, plantars are flat bilaterally. Sensory to touch is equal with no neglect on double simultaneous stimulation. Cerebellar function showed no ataxia for [id number] testing. No dysdiadochokinesia. No ataxia for [id number] testing on either side. Tone and bulk of muscles normal. Gait deferred.. On general examination, there is no carotid bruit or murmur, S1-S2 audible. Chest is clear on consultation. Abdomen is soft nontender. No organomegaly, bowel sounds present. Peripheral pulses are present. No edema. Results - Laboratory Findings CBC and BMP: 07/30/22 08:27 07/30/22 08:27 Abnormal Lab Findings: Abnormal Labs 07/29/22 07/29/22 07/29/22 16:21 16:21 16:21 WBC 19.9 H Hgb 18.0 H Hct 54.9 H Neutrophils # 16.9 H PT 12.1 H INR 1.2 H APTT 21.5 L Sodium 152 H Chloride 113 H BUN 27 H Glucose 156 H Plasma Lactic Acid Hema Calcium 10.4 H Magnesium 2.5 H Total Bilirubin 1.7 H AST 66 H ALT 77 H Creatine Kinase Troponin I Total Protein Albumin 07/29/22 07/29/22 07/29/22 16:21 16:21 19:55 WBC Hgb Hct Neutrophils # PT INR APTT Sodium Chloride BUN Glucose Plasma Lactic Acid Hema 5.3 H* 3.0 H* Calcium Magnesium Total Bilirubin AST ALT Creatine Kinase Troponin I 0.057 H* Total Protein Albumin 07/30/22 07/30/22 07/30/22 00:53 08:27 08:27 WBC 11.7 H Hgb Hct Neutrophils # 8.6 H PT INR APTT 35.8 H Sodium 147 H Chloride 115 H BUN 21 H Glucose 110 H Plasma Lactic Acid Hema Calcium 8.3 L Magnesium Total Bilirubin AST ALT 55 H Creatine Kinase Troponin I Total Protein 5.7 L Albumin 3.0 L 07/30/22 07/30/22 08:27 08:27 WBC Hgb Hct Neutrophils # PT INR APTT 70.1 H Sodium Chloride BUN Glucose Plasma Lactic Acid Hema Calcium Magnesium Total Bilirubin AST ALT Creatine Kinase 188 H Troponin I Total Protein Albumin Assessment and Plan Assessment: * Subacute ischemic stroke left occipital region, manifesting with some mental confusion, slight aphasia and complete right homonymous hemianopia. * New onset atrial fibrillation * Borderline elevated cardiac enzymes. * 3 month history of leg weakness, unclear cause. Examination revealed right hip flexion weakness otherwise the strength is normal. Rule out spinal stenosis. Plan: * MRI brain evaluate for subacute stroke, rule out hemorrhagic conversion. * MRI of the lumbar spine to rule out spinal stenosis. Patient has developed gait difficulty for the last 3 months, requiring use of walker. * B12, folate, hemoglobin A1c, lipid panel. * EEG rule out epileptiform activity. * Patient has new onset atrial fibrillation. Patient has been started on heparin to prevent recurrent strokes/TIA. ED staff discussed case, and with multifocal involvement, patient is high risk for recurrent embolism. Neurologically it was okayed to start heparin without bolus. * Stat 2-D echo, rule out left atrial/left ventricular thrombus. Cardiology on board. * Continue telemetry monitoring. * Neurology will follow. Thank you for the consult.
--- NOTE | 2022-07-30 17:09 | CA ---
Transthoracic Echo Report Name: Haider Her Age: 76 Gender: M : 1945 Exam Date: 07/30/2022 12:54 Exam Location: [place] [facility] Ht (in): 74 Wt (lb): 180 Ordering Physician: Ginger Waterman Attending/Referring Phys: [id number], [employer] Professional Procedure CPT: Indications: LV function Cardiac Hx: Technical Quality: Fair Contrast 1: Total Dose (mL): Contrast 2: Total Dose (mL): MEASUREMENTS (Male / Female) Normal Values 2D ECHO LV Diastolic Diameter PLAX 5.1 cm 4.2 - 5.9 / 3.9 - 5.3 cm LV Systolic Diameter PLAX 4.2 cm LV Fractional Shortening PLAX 18.7 % IVS Diastolic Thickness 1.4 cm 0.6 - 1.0 / 0.6 - 0.9 cm IVS Systolic Thickness 1.8 cm LVPW Diastolic Thickness 1.6 cm 0.6 - 1.0 / 0.6 - 0.9 cm LVPW Systolic Thickness 1.9 cm LV Relative Wall Thickness 0.6 RV Internal Dim ED PLAX 3.0 cm LVOT Diameter 2.1 cm LA Systolic Diameter LX 4.6 cm 3.0 - 4.0 / 2.7 - 3.8 cm LV Diastolic Volume MOD BP 147.4 cm??? 67 - 155 / 56 - 104 cm??? LV Systolic Volume MOD BP 131.0 cm??? 22 - 58 / 19 - 49 cm??? LV Ejection Fraction MOD BP 11.1 % >= 55 % LV Stroke Volume MOD BP 16.4 cm??? LV Diastolic Volume MOD 4C 146.4 cm??? LV Systolic Volume MOD 4C 136.0 cm??? LV Ejection Fraction MOD 4C 7.1 % LV Stroke Volume MOD 4C 10.4 cm??? LV Diastolic Length 4C 8.5 cm LV Systolic Length 4C 7.5 cm LV Diastolic Volume MOD 2C 145.1 cm??? LV Systolic Volume MOD 2C 114.4 cm??? LV Ejection Fraction MOD 2C 21.2 % LV Stroke Volume MOD 2C 30.7 cm??? LV Diastolic Length 2C 8.7 cm LV Systolic Length 2C 8.3 cm Ascending Aorta Diameter 3.0 cm M-MODE Aortic Root Diameter MM 3.2 cm LA Systolic Diameter MM 3.0 cm LA Ao Ratio MM 0.9 AV Cusp Separation MM 1.5 cm DOPPLER AV Peak Velocity 120.6 cm/s AV Peak Gradient 5.8 mmHg MR Peak Velocity 371.1 cm/s MR Peak Gradient 55.1 mmHg MV E' Velocity 6.2 cm/s TR Peak Velocity 226.9 cm/s TR Peak Gradient 20.6 mmHg Right Ventricular Systolic Press 30.6 mmHg PV Peak Velocity 83.5 cm/s PV Peak Gradient 2.8 mmHg FINDINGS Left Ventricle Left ventricular ejection fraction is estimated at 25-30 %. Abnormal left ventricular diastolic filling pattern. Global left ventricular hypokinesis. Mild left ventricular dilatation. Right Ventricle Generalized right ventricular hypokinesis. RVSP-31 mm Hg. Right Atrium Normal right atrial size. Left Atrium Mild left atrial dilatation. Mitral Valve Mitral valve thickened. [id number] mitral regurgitation. Aortic Valve Trileaflet aortic valve. Diffuse thickening (sclerosis) of the aortic valve cusps without reduced excursion. Tricuspid Valve Mild tricuspid regurgitation. Pulmonic Valve Pulmonic valve not well visualized. Pericardium Normal pericardium. No pericardial effusion. Aorta Normal size aortic root and proximal ascending aorta. CONCLUSIONS Cardiomyopathy with severe LV systolic dysfunction Mild to moderate mitral regurgitation Previewed by: Dr. Camron Pinedo MD (Electronically Signed) Final Date: 30 July 2022 17:09
[2022-07-30 17:29] LABS: LDL Cholesterol,Calculated 84.9 mg/dL (0.0-131.0); VLDL Calculation 14.88 mg/dL (5.00-40.00)
--- NOTE | 2022-07-30 18:06 | MR ---
EXAMINATION TYPE: MR brain/lspine wo con DATE OF EXAM: 07/30/2022 5:51 PM COMPARISON: CT brain C-spine 07/29/2022. CLINICAL INDICATION:Male, 76 years old with history of Acute stroke, r/o hemorrhagic conversion; PHH, TECHNIQUE: Multi planar, multi sequence imaging was performed through the brain without administratio n of contrast. Multi planar, multi sequence imaging was performed through the lumbar spine without the administratio n of contrast. FINDINGS: The ventricular system and cisterns appear unremarkable. T2/FLAIR hyperintensity demonstrated within the left thalamus and left temporal and occipital lobes with additional foci within the right occipit al lobe with corresponding sugar diffusion corresponding to acute/subacute ischemia. There is a susce ptibility artifact demonstrated within the left thalamus and left temporal and bilateral occipital lo bes with additional regions within the right cerebellar hemisphere and right thalamus and left fronta l lobe. No confluent subcortical and periventricular white matter T2 hyperintensity identified. Midli ne structures show no abnormality. Age-appropriate cerebral volume loss. The bone marrow signal is within normal limits. Small mucous retention cyst suggested within the left maxillary sinus. The remaining paranasal sinuses and globes are unremarkable. The lumbar vertebral bodies do have preserved heights. Mild retrolisthesis of L2 on L3, L3 on L4, and L4 on L5. Multilevel disc desiccation is present. T1/T2 hyperintensity foci within the T12 and L1 vertebral bodies consistent with benign vertebral hemangiomas. The conus medullaris and the distal sp inal cord do appear unremarkable with regards to their signal intensity and morphology. L1-L2: No significant disc pathology is identified. The spinal canal and neural foramen are patent. L2-L3: Mild retrolisthesis of L2 on L3 with broad-based disc bulge. Facet arthropathy. Mild central canal stenosis. Moderate bilateral neural foraminal stenosis. L3-L4: Mild retrolisthesis of L3 on L4. Eccentric left disc bulge with mild effacement of the anteri or thecal sac. Facet arthropathy. Moderate bilateral neural foraminal stenosis. L4-L5: Mild retrolisthesis of L4 and L5. Broad-based disc bulge with ligamentum flavum buckling and f acet arthropathy contributing to moderate central canal stenosis. Moderate bilateral neural foraminal stenosis. L5-S1: Eccentric right disc bulge without significant central canal stenosis. Mild right neural peggy inal stenosis. The left neural foramen is patent. Bilateral facet arthropathy. Other significant findings: Ectasia of the descending thoracic aorta at the hiatus measuring up to 2. 9 cm. IMPRESSION: 1. Acute/subacute ischemia within the left thalamus, left temporal lobe, and bilateral occipital lobe s corresponding to recent CT. Vascular distribution raises possibility of embolic phenomenon. 2. Susceptibility artifact identified within the bilateral thalami lobes, left upper lobe, and left f rontal lobe consistent with microhemorrhage. 3. Nonspecific white matter changes, likely secondary to small vessel ischemic disease. 4. Multilevel disc degeneration with associated osteoarthritic changes as described above.
[2022-07-30] MEDS: HEPARIN SOD,PORK IN 0.45% NACL 25,000 UNIT in 0.45% NACL 1 250ML.BAG IV SCH (18:23)
[2022-07-31] MEDS: SODIUM CHLORIDE 0.9% 1,000 ML IV SCH ×4 (05:09→15:23)
--- NOTE | 2022-07-31 05:13 | PN ---
PROGRESS NOTE SUBJECTIVE: This 76-year-old white male who had MRI of the brain today. Findings show multilevel disc desiccation, retrocholelithiasis L2-L3, L3-L4, L4-L5 hemiangiomas. He has disk bulging in multiple levels, facet arthropathy, mild stenosis, moderate stenosis at L2- L3 and L4-L5. Acute to subacute ischemia in the left thalamus, left temporal, bilateral occipital lobes, possible embolic phenomenon. Wait for echo which is being done. Possible susceptibility artifact consistent with micro hemorrhaging, nonspecific changes, multilevel disc degeneration. Echocardiogram today also showed left ventricular ejection fraction 25% to 30%, global hypokinesis. RSVP is 31. Moderate mitral regurgitation, severe systolic dysfunction, [id number] mitral regurg. Wait for Cardiology to address this and possible strokes, I do not know if they did a bubble study, we need to do a bubble study if they have not done one. ASSESSMENT: He appears to be improving. He wears oxygen. He has systolic CHF. 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 Will get consult with Dr. Patiño. He has atrial fibrillation with RVR with systolic atrial fibrillation, need blood thinners at this time, possibly Eliquis at home. He will need a neurosurgeon to assess his cervical lumbar vertebra. He has polycythemia secondary to possible COPD requiring oxygen, lactic acidosis, hyponatremia, hypocalcemia, moderate protein-calorie malnutrition. PROGNOSIS: Extremely guarded. Wait for EEG, vitamin levels. Cardiac medicines. Please see further orders. MMODL / IJN: [id number] /
[2022-07-31] MEDS: PANTOPRAZOLE 40 MG TABLET PO SCH (06:06)
[2022-07-31] MEDS: METOPROLOL TARTRATE 50 MG TAB PO SCH ×2 (09:44→20:31)
[2022-07-31] MEDS: ASPIRIN 81 MG PO SCH (09:45)
[2022-07-31] MEDS: BUDESONIDE 1 MG/2 ML NEBU INHALATION SCH ×2 (09:53→20:31)
[2022-07-31] MEDS: FORMOTEROL FUMARATE 20 MCG/2 ML NEBU INHALATION SCH ×2 (09:54→20:31)
[2022-07-31] MEDS: IPRATROPIUM-ALBUTEROL 3 ML NEB INHALATION SCH ×4 (09:54→20:31)
[2022-07-31 10:03] LABS: ALT 167 U/L (4-49); AST 167 U/L (17-59); African American GFR (CKD) >90 (>60 ml/min/1.73 sqM); Albumin 2.8 g/dL (3.5-5.0); Alkaline Phosphatase 129 U/L (38-126); Anion Gap 4 mmol/L; Blood Urea Nitrogen 13 mg/dL (9-20); Calcium 8.3 mg/dL (8.4-10.2); Carbon Dioxide 25 mmol/L (22-30); Chloride 110 mmol/L (98-107); Glucose 87 mg/dL (74-99); Non-African American GFR(CKD) >90 (>60 ml/min/1.73 sqM); Potassium 3.4 mmol/L (3.5-5.1); Sodium 139 mmol/L (137-145); Total Bilirubin 1.5 mg/dL (0.2-1.3); Total Protein 5.5 g/dL (6.3-8.2)
[2022-07-31] MEDS ORDERED: fentaNYL (PF) 50 MCG/ML 2 ML AMP ONE (11:25)
[2022-07-31] MEDS ORDERED: IV FLUID CONTINUATION 1,000 ML IV ONE (11:48)
--- NOTE | 2022-07-31 11:55 | EEG ---
ELECTROENCEPHALOGRAM REPORT PREAMBLE: This is a 76-year-old male with an episode of unresponsiveness and was found on the floor with an acute stroke. Rule out any seizure activity. EEG FINDINGS: This is a 21-channel digital EEG recorded with video component, utilizing 10/20 International System with referential and bipolar montages. Background consists of well-developed, moderately well-regulated, mixed frequencies of 9 Hz alpha, with some theta activity seen in bihemispheric region. Background is posterior dominant and reactive to eye opening and closing. Photic driving response was not seen. Drowsiness and then stage II sleep were seen with presence of some vertex waves and occasional sleep spindles. No definitive focal or generalized epileptiform activity was seen. IMPRESSION: This is a mildly abnormal EEG due to background slowing of mild degree. This is suggestive of mild encephalopathy. No epileptiform activity was seen. MMMEI / BARRERA: [id number] /
--- NOTE | 2022-07-31 11:57 | CDI ---
Documentation Clarification Form Date: 07/31/2022 11:55:03 AM From: Estela Sellers RN, CCDS Email: [email or web address] Admit Date: 07/29/2022 6:21:00 PM Patient Name: Haider Her Visit Number: [id number] Discharge Date: ATTENTION: The Clinical Documentation Specialists (CDI) and [facility] Coding Staff appreciate your assistance in clarifying documentation. Please respond to the clarification below the line at the bottom and electronically sign. The CDI & [facility] Coding staff will review the response and follow-up if needed. Please note: Queries are made part of the Legal Health Record. If you have any questions, please contact the author of this message via ITS. Dr. Alpesh Epps The patient was found on the floor at home by friends. Additional clarification is requested. History/Risk Factors: Patient found on floor by friends and not sure how long he was laying there. Patient lives alone. He was found to be in A-fib with possible stroke. Clinical Indicators: 07/30 CK level 188 Treatment: 1L 0.9 NS IV bolus on 07/29. IVF 0.9 NS @130/hr Please clarify if there is an additional diagnosis: [ ] Traumatic rhabdomyolysis due to fall [ ] Traumatic rhabdomyolysis due to prolonged immobility [ ] Other, please specify [ ] Unable to Determine MTDD
[2022-07-31] MEDS: BENZOCAINE SPRAY 1 CAN MUCOUS MEM ONE ×2 (11:59→12:10)
--- NOTE | 2022-07-31 12:04 | CDI ---
Documentation Clarification Form Date: 07/31/2022 11:57:42 AM From: Estela Sellers RN, CCDS : Admit Date: 07/29/2022 6:21:00 PM Patient Name: Haider Her Visit Number: [id number] Discharge Date: ATTENTION: The Clinical Documentation Specialists (CDI) and [facility] Coding Staff appreciate your assistance in clarifying documentation. Please respond to the clarification below the line at the bottom and electronically sign. The CDI & [facility] Coding staff will review the response and follow-up if needed. Please note: Queries are made part of the Legal Health Record. If you have any questions, please contact the author of this message via ITS. Dr. Alpesh Epps Moderate protein calorie malnutrition is documented in the 07/30 progress note which may lack sufficient clinical evidence/support in the medical record. Additional clarification is requested. History/Risk Factors: Patient found on floor by friends and not sure how long he was laying there. Patient lives alone. He was found to be in A-fib with possible stroke. Clinical Indicators: BMI 23.1 07/30 Consult: "Dehydration" 07/30 IM: "moderate protein-calorie malnutrition." No RD consult Treatment: Monitor vitamin levels. Currently NPO Please clarify if moderate protein calorie malnutrition is a valid diagnosis? [ ] Yes, moderate protein calorie malnutrition is present as evidenced by (additional clinical support): [ ] No, moderate protein calorie malnutrition is ruled out [ ] Other (please specify diagnosis) [ ] Unable to determine MTDD
[2022-07-31] MEDS ORDERED: fentaNYL (PF) 50 MCG/ML 2 ML AMP IV ONE (12:11)
[2022-07-31] MEDS: MIDAZOLAM 2 MG/2 ML VIAL IV ONE ×2 (12:11→12:12)
--- NOTE | 2022-07-31 12:29 | P.PCN ---
Date of Procedure: 07/31/22 Description of Procedure: Indication: CVA Procedure Description: After explaining the procedure to the patient, it's risk and complications, blood pressure, heart rate and O2 saturation were monitored. The throat was sprayed with Cetacaine. Patient received 2 mg intravenous Versed, 50 mcg intravenous fentanyl. The probe was introduced into the esophagus without difficulty. Images were obtained. Following that, the probe was removed. There was no immediate complication. Findings: Left atrial size is moderately enlarged, left atrial appendage is normal. The ventricle systolic function is severely impaired with global hypokinesis. Ejection fraction is 25-30%. The mitral valve revealed thickening of the mitral valve leaflets, mild thickening of the aortic cusp was noted. Tricuspid and pulmonic valve are normal. Descending thoracic aorta revealed mild atherosclerotic changes. No pericardial effusion was noted. Contrast bubble study revealed no shunting across the intra-atrial septum with Valsalva maneuver. Doppler: Pulse wave and color Doppler were obtained, an revealed moderate mitral with mild to moderate tricuspid regurgitation. There was no evidence of shunting across the intra-atrial septum. Conclusion: 1. Dilated left atrium with normal appearance of the left atrial appendage 2. Severely impaired left ventricle systolic function with global hypokinesis 3. And moderate mitral with mild to moderate tricuspid regurgitation 4. No shunting across the intra-atrial septum 5. No pericardial effusion
--- NOTE | 2022-07-31 12:43 | P.PN ---
Subjective Progress Note Date: 07/31/22 HISTORY OF PRESENT ILLNESS: This is a 76-year-old male with a past medical history significant for nicotine dependence and occasional alcohol use. Patient does not follow with a card iologist. We have been asked to see the patient in consultation for new-onset atrial fibrillation. Patient examined at the bedside in the emergency room. The patient was a poorly brought to the hospital after he was found down at his home. According to ER records the last time he was seen by a friend was approximately 10 days ago. There is no family at the bedside. The patient is confused and is a poor historian. The patient answered "not that I remember" to a majority of questions asked to him. The patient does not remember coming to the hospital or the events prior to coming to the hospital. He is unsure if he was having shortness of breath or chest pain. The patient does report he is not very active at home. He states he does not take any medications at home. The patient reports taking occasional alcohol but did not quantify the amount. The patient is also a current cigarette smoker. The patient was found to be in atrial fibrillation with RVR and he presented to the hospital. He was started on IV heparin and IV amiodarone. The patient remains in atrial fibrillation w ith a heart rate around 110 at the time of examination. Patient was asked if he had a history of atrial fibrillation which he states "not that I remember". * EKG reveals atrial fibrillation with RVR * Chest xray negative for acute process. Elevation of the right hemidiaphragm which could relate to diaphragmatic paralysis versus hernia. * CT of the brain: Hypodensity within the left occipital lobe with effacement of adjacent foci. Consider acute infarct. Hypodensity within the left thalamus is of indeterminate age. This could be chronic white matter ischemic changes. Acute lacunar infarct can be considered. * Chest CT: No acute pulmonary process visualized. Coronary artery calcifications present. * Laboratory data: W BC 11.7. Hemoglobin 14.2. Platelet count 209. Sodium 147. Potassium 3.5. BUN 21. Creatinine 0.84. Lactic acid 3.0. Repeat 1.2. ProBNP 2380. TSH 2.550. Troponin 0.057. * Current home cardiac medications include none 07/31/2022 Patient examined this morning at the bedside. Patient continues to remain confused, although improved from yesterday. Telemetry reveals atrial fibrillation with a heart rate between 80 and 90. Tachycardia gram completed revealing ejection fraction 25-30% with mild to moderate mitral regurgitation. MRI of the brain revealed acute/subacute ischemia within the left thalamus, left temporal lobe, and bilateral occipital lobes corresponding to recent CT. Vascular distribution raises possibility of embolic phenomenon. PHYSICAL EXAM: VITAL SIGNS: Reviewed. GENERAL: Well-developed in no acute distress. HEENT: Head is normocephalic. Pupils are equal, round. Sclerae anicteric. Mucous membranes of the mouth are moist. Neck supple. No JVD or thyromegaly LUNGS: Respirations even and unlabored. Lungs essentially clear to auscultation bilaterally. HEART: Irregular rate and rhythm. S1 and S2 heard. ABDOMEN: Soft. Nondistended. Nontender. EXTREMITIES: Normal range of motion. No clubbing or cyanosis. Peripheral pulses intact. No lower extremity edema NEUROLOGIC: Awake and alert. Oriented x 1. ASSESSMENT: Altered mental status Lactic acidosis, improving Acute hypoxic respiratory failure Atrial fibrillation with RVR, duration unknown Acute/subacute ischemia within the left thalamus, left temporal lobe, and bilateral occipital lobes Elevated troponin, not suggestive of acute coronary syndrome, likely type II MD Mildly elevated LFTs Nicotine dependence Cardiomyopathy, unknown of ischemic or nonischemic, EF 25-30% PLAN: Continue aspirin 81 mg daily Statin therapy on hold secondary to elevated LFTs. LFTs increased today. Obtain abdominal ultrasound Add Farxiga 10mg daily Add HI/ARB in 24-48 hours Case discussed with Dr. James. He is requesting JALEN to evaluate for thrombus. If no thrombus, he will hold anticoagulation for 7 days. However if a thrombus is noted, he will begin anticoagulation now. Patient to undergo JALEN today with Dr. Michel Further recommendations pending patient's course Nurse practitioner note has been reviewed by physician. Signing provider agrees with the documented findings, assessment, and plan of care. Objective - Vital Signs Vital signs: Vital Signs Temp 97.7 F 07/31/22 08:00 Pulse 86 07/31/22 12:22 Resp 18 07/31/22 12:22 BP 105/72 07/31/22 12:22 Pulse Ox 96 07/31/22 12:22 FiO2 Intake & Output 07/30/22 07/31/22 07/31/22 18:59 06:59 18:59 Intake Total 175.372 75 Output Total 100 350 Balance 75.372 -350 75 Weight 81.647 kg Intake: IV 75 Intake, IV Titration 175.372 Amount Heparin Sod,Pork in 0.45% 175.372 NaCl 25,000 unit In 0.45 % NaCl 1 250ml.bag @ 12 UNITS/KG/HR 9.798 mls/hr IV .Q24H [facility] Rx#: [id number] Output: Urine 100 350 Other: Voiding Method Urinal Urinal # Voids 1 - Labs CBC & Chem 7: 07/30/22 08:27 07/31/22 08:45 Labs: Abnormal Lab Results - Last 24 Hours (Table) 07/30/22 07/30/22 07/30/22 Range/Units 08:27 08:27 08:27 Potassium (3.5-5.1) mmol/L Chloride (98-107) mmol/L Calcium (8.4-10.2) mg/dL Total Bilirubin (0.2-1.3) mg/dL AST (17-59) U/L ALT (4-49) U/L Alkaline Phosphatase (38-126) U/L Total Protein (6.3-8.2) g/dL Albumin (3.5-5.0) g/dL HDL Cholesterol 31.20 L (40.00-60.00) mg/dL Vitamin B12 1063.0 H (200.0-944.0) pg/mL Folate 40.00 H (4.40-31.00) ng/mL 07/31/22 Range/Units 08:45 Potassium 3.4 L (3.5-5.1) mmol/L Chloride 110 H (98-107) mmol/L Calcium 8.3 L (8.4-10.2) mg/dL Total Bilirubin 1.5 H (0.2-1.3) mg/dL AST 167 H (17-59) U/L ALT 167 H (4-49) U/L Alkaline Phosphatase 129 H (38-126) U/L Total Protein 5.5 L (6.3-8.2) g/dL Albumin 2.8 L (3.5-5.0) g/dL HDL Cholesterol (40.00-60.00) mg/dL Vitamin B12 (200.0-944.0) pg/mL Folate (4.40-31.00) ng/mL Microbiology - Last 24 Hours (Table) 07/29/22 17:15 Blood Culture - Preliminary Blood No Growth after 24 hours
--- NOTE | 2022-07-31 13:12 | P.PN ---
Subjective Progress Note Date: 07/31/22 I am seeing this patient in new consultation today 07/30/2022 in the emergency room for increased oxygen demands. Patient is a 76-year-old male who is brought in by his friends yesterday after being found down at his home. Patient is currently confused and a poor historian. Apparently, the patient was last seen well 10 days ago by his friends. Patient does not have any family and lives at home alone. He reportedly has not been to a doctor in some time. He is a current smoker. On arrival to the emergency room, patient was found to be in atrial fibrillation with rapid ventricular rate. He was started on amiodarone which is currently infusing at a rate of 0.5 mg/m. Patient also has low inten sity heparin infusing at 1143 units per hour. Most recent aPTT was subtherapeutic at 35.8. Troponins were mildly elevated at 0.057. NT proBNP mildly elevated at 2990. He was also hypoxic on arrival, and is currently on 3 L nasal cannula oxygenating at 100%. This could probably be weaned down. Initial chest x-ray showed no acute cardiopulmonary process with some elevation of the right hemidiaphragm which could be related to diaphragmatic paralysis versus hernia. A follow-up chest CT also showed no acute cardiopulmonary process. He was negative for COVID-19, influenza, RSV. Procalcitonin level was low at 0.07. Patient's CT of the brain and C-spine without contrast showed a hypodense area within the left occipital lobe with effacement of adjacent foci and could indicate acute infarct. There was also a hypodense area within the left thalamus of indeterminate age. Recommended MRI follow-up. Patient's CBC on arrival showed some leukocytosis with a WBC count of 19.9, hemoglobin 18, hematocrit 54.9, platelets 431,000. Patient's BMP on arrival showed a sodium 152, potassium 4.1, chloride 113, serum CO2 25, BUN 27, creatinine 1.01, glucose 156. Lactic acid level was elevated on admission, and is down to 1.2. Patient was given 2 L normal saline bolus in the emergency room. No IV maintenance fluids are infusing. Currently, patient's vital signs are stable. On today's evaluation of 07/31/2022, the patient is being seen for a follow-up. The patient remains somewhat confused. He is overall improving however. His EKG is still showing H of fibrillation and the rate is controlled at this point in time. His echocardiogram showed a week LV function with an ejection fraction of 25-30% and the patient tryc-dh-[id number] mitral regurgitation. MRI of the brain also showed acute/subacute ischemic changes in the left thalamus left temporal lobe and bilateral occipital lobes corresponding with recent CAT scan. This could be potentially a embolic phenomena. Otherwise, is blood work from today is also showing abnormal LFTs, and an ultrasound of the abdomen and the right upper quadrant was ordered. His AST was 167, ALP was also elevated at 167, alkaline phosphatase is 129. His sodium levels of 139, BUN is at 50 with a creatinine of 0.7. Electrolytes show a low potassium of 3.4. He is currently on metoprolol 50 mg by mouth twice a day. He is also on Aldactone. No di uretics. He still receiving local relatives and is also on aspirin. Objective - Vital Signs Vital signs: Vital Signs Temp 97.7 F 07/31/22 08:00 Pulse 86 07/31/22 12:22 Resp 18 07/31/22 12:22 BP 105/72 07/31/22 12:22 Pulse Ox 96 07/31/22 12:22 FiO2 Intake & Output 07/30/22 07/31/22 07/31/22 18:59 06:59 18:59 Intake Total 175.372 75 Output Total 100 350 Balance 75.372 -350 75 Weight 81.647 kg Intake: IV 75 Intake, IV Titration 175.372 Amount Heparin Sod,Pork in 0.45% 175.372 NaCl 25,000 unit In 0.45 % NaCl 1 250ml.bag @ 12 UNITS/KG/HR 9.798 mls/hr IV .Q24H [facility] Rx#: [id number] Output: Urine 100 350 Other: Voiding Method Urinal Urinal # Voids 1 - Exam GENERAL EXAM: Alert but disoriented 76-year-old male, he is comfortable in no apparent distress. HEAD: Normocephalic and atraumatic EYES: Normal reaction of pupils, equal size. NOSE: Clear with pink turbinates. THROAT: No erythema or exudates. NECK: No masses, no JVD. CHEST: No chest wall deformity. LUNGS: Equal air entry with no crackles, wheeze, rhonchi or dullness. On 3 L nasal cannula. No conversational dyspnea or accessory muscle use.. CVS: S1 and S2 normal with no audible murmur, regular rhythm. No extra heart sounds ABDOMEN: No hepatosplenomegaly, active bowel sounds, no guarding or rigidity. SPINE: No scoliosis or deformity SKIN: No rashes CENTRAL NERVOUS SYSTEM: No focal deficits, tone is normal in all 4 extremities. EXTREMITIES: There is no peripheral edema, clubbing, or cyanosis. Peripheral pulses are intact. - Labs CBC & Chem 7: 07/30/22 08:27 07/31/22 08:45 Labs: Abnormal Lab Results - Last 24 Hours (Table) 07/30/22 07/30/22 07/30/22 Range/Units 08:27 08:27 08:27 Potassium (3.5-5.1) mmol/L Chloride (98-107) mmol/L Calcium (8.4-10.2) mg/dL Total Bilirubin (0.2-1.3) mg/dL AST (17-59) U/L ALT (4-49) U/L Alkaline Phosphatase (38-126) U/L Total Protein (6.3-8.2) g/dL Albumin (3.5-5.0) g/dL HDL Cholesterol 31.20 L (40.00-60.00) mg/dL Vitamin B12 1063.0 H (200.0-944.0) pg/mL Folate 40.00 H (4.40-31.00) ng/mL 07/31/22 Range/Units 08:45 Potassium 3.4 L (3.5-5.1) mmol/L Chloride 110 H (98-107) mmol/L Calcium 8.3 L (8.4-10.2) mg/dL Total Bilirubin 1.5 H (0.2-1.3) mg/dL AST 167 H (17-59) U/L ALT 167 H (4-49) U/L Alkaline Phosphatase 129 H (38-126) U/L Total Protein 5.5 L (6.3-8.2) g/dL Albumin 2.8 L (3.5-5.0) g/dL HDL Cholesterol (40.00-60.00) mg/dL Vitamin B12 (200.0-944.0) pg/mL Folate (4.40-31.00) ng/mL Microbiology - Last 24 Hours (Table) 07/29/22 17:15 Blood Culture - Preliminary Blood No Growth after 24 hours Assessment and Plan Assessment: COPD exacerbation. Patient has a significant smoking history. He was negative for COVID-19, influenza, RSV. Chest x-ray and chest CT show no sign of pneumonia or focal consolidation. Procalcitonin level was low at 0.07. Acute hypoxic respiratory failure secondary to above, currently on 3 L nasal cannula New-onset atrial fibrillation rate is controlled on metoprolol CHF with systolic heart failure EF of around 25-30% Elevated troponins likely secondary to supply/demand mismatch Suspected left occipital lobe acute infarct with unknown last well time. CT of the brain and C-spine without contrast showed a hypodense area within the left occipital lobe with effacement of the adjacent sulci. There was also hypodense area within the left thalamus of indeterminate age. MRI of the brain confirmed presence of acute/subacute stroke consistent with the CAT scan findings. Rule out underlying embolism. Acute confusion, possibly secondary to above, improving Dehydration, improving Lactic acidosis, resolved Nicotine dependence Abnormal LFTs Plan: Continue aspirin The patient will ultimately need anticoagulation. 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 Patient is On aspirin. Abnormal LFTs are noted and the patient is getting an ultrasound of the abdomen Representative on the case Neurology is on the case Neuro checks Recommended JALEN We'll follow
[2022-07-31 13:45] VITALS: BMI 23.1
--- NOTE | 2022-07-31 14:03 | CT ---
EXAMINATION TYPE: CT brain wo con CT DLP: 1158.4 mGycm, Automated exposure control for dose reduction was used. DATE OF EXAM: 07/31/2022 1:47 PM COMPARISON: CT brain C-spine 07/29/2022, MR brain 07/30/2022. CLINICAL INDICATION:Male, 76 years old with history of CVA- monitor progression, CVA- monitor progres lópez TECHNIQUE: Brain: Multiple axial CT images of the brain were obtained without IV contrast. Coronal and sagittal reformats reviewed. FINDINGS: Brain: Extra-axial spaces: No abnormal extra-axial fluid collections. Ventricular system: Within normal limits Cerebral parenchyma: Cerebral atrophy. No acute intraparenchymal hemorrhage or mass effect. Similar hypodensity within the left occipital and temporal lobes and left thalamus with loss of michael-white di fferentiation. The remaining michael-white junction is well differentiated. Scattered hypoattenuating ar eas are seen within the white matter. Cerebellum: Unremarkable. Mass effect: No evidence of midline shift. Intracranial vasculature: Atherosclerotic calcifications of the intracranial vessels. Soft tissues: Normal. Calvarium/osseous structures: No depressed skull fracture. Paranasal sinuses and mastoid air cells: The mastoid is are clear. Mild mucosal thickening of the lef t maxilla sinus. Visualized orbits: Orbital contents are intact. IMPRESSION: 1. Similar appearance of known left occipital lobe, temporal lobe, and thalamus ischemia without CT evidence for hemorrhagic conversion. 2. Nonspecific white matter changes likely secondary to small vessel ischemic disease.
--- NOTE | 2022-07-31 14:03 | US ---
EXAMINATION TYPE: US abdomen complete DATE OF EXAM: 07/31/2022 COMPARISON: NONE CLINICAL INDICATION: Male, 76 years old with history of elevated bili, elevated LFT's; Abnormal labs. Patient had JALEN today. NPO. Patient states he still has GB. Portable ultrasound TECHNIQUE: Multiple sonographic images of the abdomen are obtained. 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 Right lobe cystic appearing lesion = 2.6 x 2.4 x 2.2 cm Gallbladder: Obscured by overlying bowel gas, possible small portion seen Evidence for sonographic Du's sign: neg CBD: Obscured by overlying bowel gas Spleen: Limited visualization Right Kidney: No hydronephrosis or masses seen Left Kidney: No hydronephrosis or masses seen Upper IVC: wnl Abd Aorta: Proximal not visualized IMPRESSION: 1. Hepatic cyst. No acute abdomen ultrasound abnormality. There is limitation due to bowel gas.
--- NOTE | 2022-07-31 15:18 | P.PN ---
Subjective Progress Note Date: 07/31/22 Patient was seen for a follow-up. Patient has just returned back from JALEN. He is slightly groggy. Patient's caregivers, who are his neighbors were also present today. Caregivers state that he looks slightly better, but the memory is still off. Objective - Vital Signs Vital signs: Vital Signs Temp 97.7 F 07/31/22 08:00 Pulse 86 07/31/22 12:22 Resp 18 07/31/22 12:22 BP 105/72 07/31/22 12:22 Pulse Ox 96 07/31/22 12:22 FiO2 Intake & Output 07/30/22 07/31/22 07/31/22 18:59 06:59 18:59 Intake Total 175.372 75 Output Total 100 350 Balance 75.372 -350 75 Weight 81.647 kg Intake: IV 75 Intake, IV Titration 175.372 Amount Heparin Sod,Pork in 0.45% 175.372 NaCl 25,000 unit In 0.45 % NaCl 1 250ml.bag @ 12 UNITS/KG/HR 9.798 mls/hr IV .Q24H [facility] Rx#: [id number] Output: Urine 100 350 Other: Voiding Method Urinal Urinal # Voids 1 - Exam Patient still very confused, partly from returning from JALEN. Detailed examination could not be performed. - Labs CBC & Chem 7: 07/30/22 08:27 07/31/22 08:45 Labs: Abnormal Lab Results - Last 24 Hours (Table) 07/30/22 07/30/22 07/30/22 Range/Units 08:27 08:27 08:27 Potassium (3.5-5.1) mmol/L Chloride (98-107) mmol/L Calcium (8.4-10.2) mg/dL Total Bilirubin (0.2-1.3) mg/dL AST (17-59) U/L ALT (4-49) U/L Alkaline Phosphatase (38-126) U/L Total Protein (6.3-8.2) g/dL Albumin (3.5-5.0) g/dL HDL Cholesterol 31.20 L (40.00-60.00) mg/dL Vitamin B12 1063.0 H (200.0-944.0) pg/mL Folate 40.00 H (4.40-31.00) ng/mL 07/31/22 Range/Units 08:45 Potassium 3.4 L (3.5-5.1) mmol/L Chloride 110 H (98-107) mmol/L Calcium 8.3 L (8.4-10.2) mg/dL Total Bilirubin 1.5 H (0.2-1.3) mg/dL AST 167 H (17-59) U/L ALT 167 H (4-49) U/L Alkaline Phosphatase 129 H (38-126) U/L Total Protein 5.5 L (6.3-8.2) g/dL Albumin 2.8 L (3.5-5.0) g/dL HDL Cholesterol (40.00-60.00) mg/dL Vitamin B12 (200.0-944.0) pg/mL Folate (4.40-31.00) ng/mL Microbiology - Last 24 Hours (Table) 07/29/22 17:15 Blood Culture - Preliminary Blood No Growth after 24 hours Assessment and Plan Assessment: * Acute/subacute ischemia within the left thalamus, left temporal lobe and bilateral occipital lobes consistent with embolic infarctions from cardiac so urce. Patient had presented with some mental confusion, slight aphasia and complete right homonymous hemianopia. * New onset atrial fibrillation * Borderline elevated cardiac enzymes. * 3 month history of leg weakness, unclear cause. Possible related to subacute CVA versus spinal stenosis. MRI of the lumbar spine showed moderate to severe central canal stenosis at L4-L5. Plan: * MRI brain revealed acute/subacute ischemia within the left thalamus, left temporal lobe and bilateral occipital lobes, corresponding to the recent CT. Susceptibility artifact identified within the bilateral thalami, left upper lobe and left frontal lobe, consistent with microhemorrhage. I personally reviewed MRI, I agree with the findings. * Heparin was put on hold last night after the MRI report. * Repeat CT head performed today reveals similar appearance of known left occipital lobe, temporal lobe, and thalamus ischemia without CT evidence for hemorrhagic conversion. * Continue aspirin 81 mg daily for now. * JALEN performed today revealed dilated left atrium, with normal appearance of the left atrial appendage. Severely impaired left ventricular systolic function with global hypokinesis and EF 25-30%. Moderate mitral with [id number] tricuspid regurgitation. No shunting across the interatrial septum. * As there was no thrombus seen in the echo, we will consider re-starting anticoagulation in 1-2 days, given his risk for recurrent embolism. * MRI of the lumbar spine revealed moderate spinal stenosis at L4-L5 level. I personally reviewed MRI, and appears at least moderate to severe stenosis at this level. * B12 1063, folate 40.0, hemoglobin A1c 5.9, lipid panel cholesterol 131, LDL 84, HDL 31 and triglycerides 74. Start Lipitor 40 mg daily. * EEG was mildly abnormal due to background slowing, suggestive of mild encephalopathy. No epileptiform activity was seen. * Stat 2-D echo revealed cardiomyopathy with severe left ventricle systolic dysfunction with EF 25-30%. Left atrium with mild dilation. Mild to moderate MR. Cardiology on board. * Discussed with patient's caregiver in detail.
[2022-07-31] MEDS ORDERED: Potassium Replacement Protocol 1 EACH MISC MISCELLANE PRN (15:19)
[2022-07-31] MEDS: POTASSIUM CHLORIDE ER 20 MEQ TAB.ER PO SCH ×2 (15:30→18:18)
[2022-07-31] MEDS: SPIRONOLACTONE 25 MG TAB PO SCH (15:30)
[2022-07-31] MEDS: DAPAGLIFLOZIN PROPANEDIOL 10 MG TABLET PO SCH (15:30)
[2022-07-31] MEDS: ATORVASTATIN 40 MG TAB PO SCH (20:32)
[2022-07-31] MEDS ORDERED: ATORVASTATIN 40 MG TAB PO SCH (21:00)
[2022-08-01] MEDS: PANTOPRAZOLE 40 MG TABLET PO SCH (06:21)
[2022-08-01] MEDS: SPIRONOLACTONE 25 MG TAB PO SCH (08:47)
[2022-08-01] MEDS: METOPROLOL TARTRATE 50 MG TAB PO SCH ×2 (08:47→19:55)
[2022-08-01] MEDS: DAPAGLIFLOZIN PROPANEDIOL 10 MG TABLET PO SCH (08:47)
[2022-08-01] MEDS: ASPIRIN 81 MG PO SCH (08:47)
[2022-08-01] MEDS: FORMOTEROL FUMARATE 20 MCG/2 ML NEBU INHALATION SCH ×2 (09:12→20:32)
[2022-08-01] MEDS: IPRATROPIUM-ALBUTEROL 3 ML NEB INHALATION SCH ×4 (09:12→20:32)
[2022-08-01] MEDS: BUDESONIDE 1 MG/2 ML NEBU INHALATION SCH ×2 (09:13→20:32)
[2022-08-01 11:46] LABS: African American GFR (CKD) >90 (>60 ml/min/1.73 sqM); Anion Gap 10 mmol/L; Blood Urea Nitrogen 11 mg/dL (9-20); Calcium 9.1 mg/dL (8.4-10.2); Carbon Dioxide 22 mmol/L (22-30); Chloride 111 mmol/L (98-107); Glucose 105 mg/dL (74-99); Non-African American GFR(CKD) >90 (>60 ml/min/1.73 sqM); Sodium 143 mmol/L (137-145)
[2022-08-01 11:51] LABS: Potassium 4.2 mmol/L (3.5-5.1)
[2022-08-01] MEDS: SODIUM CHLORIDE 0.9% 1,000 ML IV SCH (12:22)
--- NOTE | 2022-08-01 12:40 | P.PN ---
Subjective Progress Note Date: 08/01/22 HISTORY OF PRESENT ILLNESS: This is a 76-year-old male with a past medical history significant for nicotine dependence and occasional alcohol use. Patient does not follow with a card iologist. We have been asked to see the patient in consultation for new-onset atrial fibrillation. Patient examined at the bedside in the emergency room. The patient was a poorly brought to the hospital after he was found down at his home. According to ER records the last time he was seen by a friend was approximately 10 days ago. There is no family at the bedside. The patient is confused and is a poor historian. The patient answered "not that I remember" to a majority of questions asked to him. The patient does not remember coming to the hospital or the events prior to coming to the hospital. He is unsure if he was having shortness of breath or chest pain. The patient does report he is not very active at home. He states he does not take any medications at home. The patient reports taking occasional alcohol but did not quantify the amount. The patient is also a current cigarette smoker. The patient was found to be in atrial fibrillation with RVR and he presented to the hospital. He was started on IV heparin and IV amiodarone. The patient remains in atrial fibrillation w ith a heart rate around 110 at the time of examination. Patient was asked if he had a history of atrial fibrillation which he states "not that I remember". * EKG reveals atrial fibrillation with RVR * Chest xray negative for acute process. Elevation of the right hemidiaphragm which could relate to diaphragmatic paralysis versus hernia. * CT of the brain: Hypodensity within the left occipital lobe with effacement of adjacent foci. Consider acute infarct. Hypodensity within the left thalamus is of indeterminate age. This could be chronic white matter ischemic changes. Acute lacunar infarct can be considered. * Chest CT: No acute pulmonary process visualized. Coronary artery calcifications present. * Laboratory data: W BC 11.7. Hemoglobin 14.2. Platelet count 209. Sodium 147. Potassium 3.5. BUN 21. Creatinine 0.84. Lactic acid 3.0. Repeat 1.2. ProBNP 2380. TSH 2.550. Troponin 0.057. * Current home cardiac medications include none 07/31/2022 Patient examined this morning at the bedside. Patient continues to remain confused, although improved from yesterday. Telemetry reveals atrial fibrillation with a heart rate between 80 and 90. Tachycardia gram completed revealing ejection fraction 25-30% with mild to moderate mitral regurgitation. MRI of the brain revealed acute/subacute ischemia within the left thalamus, left temporal lobe, and bilateral occipital lobes corresponding to recent CT. Vascular distribution raises possibility of embolic phenomenon. 08/01/2022 Patient is status post JALEN revealing dilated left atrium with normal appearance of left atrial appendage, severely impaired left ventricular systolic function with global hypokinesis, moderate mitral with mild to moderate tricuspid regurgitation, no shunting across interatrial septum. No pericardial effusion. Patient examined this morning. Patient is sitting up in the chair. He denies chest pain or pressure. He denies shortness of breath. Patient's mentation appears to be improving compared to yesterday. Telemetry reveals atrial fibrillation with controlled ventricular rates. PHYSICAL EXAM: VITAL SIGNS: Reviewed. GENERAL: Well-developed in no acute distress. HEENT: Head is normocephalic. Pupils are equal, round. Sclerae anicteric. Mucous membranes of the mouth are moist. Neck supple. No JVD or thyromegaly LUNGS: Respirations even and unlabored. Lungs essentially clear to auscultation bilaterally. HEART: Irregular rate and rhythm. S1 and S2 heard. ABDOMEN: Soft. Nondistended. Nontender. EXTREMITIES: Normal range of motion. No clubbing or cyanosis. Peripheral pulses intact. No lower extremity edema NEUROLOGIC: Awake and alert. Oriented x 1. ASSESSMENT: Altered mental status Lactic acidosis, improving Acute hypoxic respiratory failure Atrial fibrillation with RVR, duration unknown Acute/subacute ischemia within the left thalamus, left temporal lobe, and bilateral occipital lobes Elevated troponin, not suggestive of acute coronary syndrome, likely type II OH Mildly elevated LFTs Nicotine dependence Cardiomyopathy, unknown of ischemic or nonischemic, EF 25-30% PLAN: Continue aspirin 81 mg daily Statin therapy added per neurology. Patient with elevated LFTs. Continue to guanaco tor LFTs. Repeat in AM Add Entresto tonight secondary to cardiomyopathy. Monitor blood pressure. Begin anticoagulation when cleared by neurology Further recommendations pending patient's course Nurse practitioner note has been reviewed by physician. Signing provider agrees with the documented findings, assessment, and plan of care. Objective - Vital Signs Vital signs: Vital Signs Temp 97.6 F 08/01/22 11:38 Pulse 80 08/01/22 09:39 Resp 20 08/01/22 11:38 BP 137/86 08/01/22 11:38 Pulse Ox 96 08/01/22 11:38 FiO2 Intake & Output 07/31/22 08/01/22 08/01/22 18:59 06:59 18:59 Intake Total 75 Output Total 200 Balance 75 -200 Weight 81.647 kg Intake: IV 75 Output: Urine 200 Other: Voiding Method Urinal Urinal # Voids 2 1 - Labs CBC & Chem 7: 07/30/22 08:27 08/01/22 10:47 Labs: Abnormal Lab Results - Last 24 Hours (Table) 08/01/22 Range/Units 10:47 Chloride 111 H (98-107) mmol/L Glucose 105 H (74-99) mg/dL Microbiology - Last 24 Hours (Table) 07/29/22 17:15 Blood Culture - Preliminary Blood No Growth after 48 hours
--- NOTE | 2022-08-01 17:55 | P.PN ---
Subjective Progress Note Date: 08/01/22 I am seeing this patient in new consultation today 07/30/2022 in the emergency room for increased oxygen demands. Patient is a 76-year-old male who is brought in by his friends yesterday after being found down at his home. Patient is currently confused and a poor historian. Apparently, the patient was last seen well 10 days ago by his friends. Patient does not have any family and lives at home alone. He reportedly has not been to a doctor in some time. He is a current smoker. On arrival to the emergency room, patient was found to be in atrial fibrillation with rapid ventricular rate. He was started on amiodarone which is currently infusing at a rate of 0.5 mg/m. Patient also has low inten sity heparin infusing at 1143 units per hour. Most recent aPTT was subtherapeutic at 35.8. Troponins were mildly elevated at 0.057. NT proBNP mildly elevated at 2990. He was also hypoxic on arrival, and is currently on 3 L nasal cannula oxygenating at 100%. This could probably be weaned down. Initial chest x-ray showed no acute cardiopulmonary process with some elevation of the right hemidiaphragm which could be related to diaphragmatic paralysis versus hernia. A follow-up chest CT also showed no acute cardiopulmonary process. He was negative for COVID-19, influenza, RSV. Procalcitonin level was low at 0.07. Patient's CT of the brain and C-spine without contrast showed a hypodense area within the left occipital lobe with effacement of adjacent foci and could indicate acute infarct. There was also a hypodense area within the left thalamus of indeterminate age. Recommended MRI follow-up. Patient's CBC on arrival showed some leukocytosis with a WBC count of 19.9, hemoglobin 18, hematocrit 54.9, platelets 431,000. Patient's BMP on arrival showed a sodium 152, potassium 4.1, chloride 113, serum CO2 25, BUN 27, creatinine 1.01, glucose 156. Lactic acid level was elevated on admission, and is down to 1.2. Patient was given 2 L normal saline bolus in the emergency room. No IV maintenance fluids are infusing. Currently, patient's vital signs are stable. On today's evaluation of 07/31/2022, the patient is being seen for a follow-up. The patient remains somewhat confused. He is overall improving however. His EKG is still showing H of fibrillation and the rate is controlled at this point in time. His echocardiogram showed a week LV function with an ejection fraction of 25-30% and the patient [id number] mitral regurgitation. MRI of the brain also showed acute/subacute ischemic changes in the left thalamus left temporal lobe and bilateral occipital lobes corresponding with recent CAT scan. This could be potentially a embolic phenomena. Otherwise, is blood work from today is also showing abnormal LFTs, and an ultrasound of the abdomen and the right upper quadrant was ordered. His AST was 167, ALP was also elevated at 167, alkaline phosphatase is 129. His sodium levels of 139, BUN is at 50 with a creatinine of 0.7. Electrolytes show a low potassium of 3.4. He is currently on metoprolol 50 mg by mouth twice a day. He is also on Aldactone. No di uretics. He still receiving local relatives and is also on aspirin. On 08/01/2022, the patient is overall respiratory status is stable. No significant respiratory difficulties. His resting comfortably in bed and is currently on room air oxygen. Noted the patient also has had multiple acute/subacute ischemic changes involving left thalamus, left temporal lobe and bilateral occipital lobes and this was considered to be embolic in nature. A JALEN was done yesterday that showed no significant abnormalities. The patient has converted into normal sinus rhythm. The patient is also was found to have severe systolic heart failure with an ejection fraction of 25-30% and explosive operator on the case to optimize his CHF. A repeat CAT scan of the brain was also done yesterday that showed no evidence of any hemorrhagic transformation. The findings were essentially similar involving the occipital t emporal area lobes and the thalamus. The patient is currently on aspirin. Patient is also being considered for full skin anticoagulation once cleared by neurology. Objective - Vital Signs Vital signs: Vital Signs Temp 98.3 F 08/01/22 16:32 Pulse 71 08/01/22 16:32 Resp 20 08/01/22 16:32 BP 145/99 08/01/22 16:32 Pulse Ox 96 08/01/22 16:32 FiO2 Intake & Output 07/31/22 08/01/22 08/01/22 18:59 06:59 18:59 Intake Total 75 Output Total 200 Balance 75 -200 Weight 81.647 kg Intake: IV 75 Output: Urine 200 Other: Voiding Method Urinal Urinal # Voids 2 1 - Exam GENERAL EXAM: Alert but disoriented 76-year-old male, he is comfortable in no apparent distress. HEAD: Normocephalic and atraumatic EYES: Normal reaction of pupils, equal size. NOSE: Clear with pink turbinates. THROAT: No erythema or exudates. NECK: No masses, no JVD. CHEST: No chest wall deformity. LUNGS: Equal air entry with no crackles, wheeze, rhonchi or dullness. On 3 L nasal cannula. No conversational dyspnea or accessory muscle use.. CVS: S1 and S2 normal with no audible murmur, regular rhythm. No extra heart sounds ABDOMEN: No hepatosplenomegaly, active bowel sounds, no guarding or rigidity. SPINE: No scoliosis or deformity SKIN: No rashes CENTRAL NERVOUS SYSTEM: No focal deficits, tone is normal in all 4 extremities. EXTREMITIES: There is no peripheral edema, clubbing, or cyanosis. Peripheral pulses are intact. - Labs CBC & Chem 7: 07/30/22 08:27 08/01/22 10:47 Labs: Abnormal Lab Results - Last 24 Hours (Table) 08/01/22 Range/Units 10:47 Chloride 111 H (98-107) mmol/L Glucose 105 H (74-99) mg/dL Microbiology - Last 24 Hours (Table) 07/29/22 17:15 Blood Culture - Preliminary Blood No Growth after 48 hours Assessment and Plan Assessment: COPD exacerbation. Clinically recovered and the patient's overall respiratory status is back to its baseline. Patient has a significant smoking history. He was negative for COVID-19, influenza, RSV. Chest x-ray and chest CT show no sign of pneumonia or focal consolidation. Procalcitonin level was low at 0.07. Acute hypoxic respiratory failure secondary to above, currently on room air oxygen New-onset atrial fibrillation rate is controlled on metoprolol , converted to normal sinus rhythm CHF with systolic heart failure EF of around 25-30%, currently well optimized Elevated troponins likely secondary to supply/demand mismatch Suspected left occipital lobe acute infarct with unknown last well time. CT of the brain and C-spine without contrast showed a hypodense area within the left occipital lobe with effacement of the adjacent sulci. There was also hypodense area within the left thalamus of indeterminate age. MRI of the brain confirmed presence of acute/subacute stroke consistent with the CAT scan findings. Rule out underlying embolism. JALEN showed no significant abnormalities at least unofficially. Awaiting final report. The patient was started on aspirin and anticoagulation with Eliquis is to follow was pleased by neurology. Acute confusion, possibly secondary to above, improving, although not completely recovered Dehydration, improving Lactic acidosis, resolved Nicotine dependence Abnormal LFTs Plan: Continue aspirin Anticoagulation is to follow once the patient is cleared by neurology Repeat CAT scan of the brain yesterday showed no evidence of any hemorrhagic transformation Awaiting final report on the JALEN Patient is On aspirin. 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
[2022-08-01] MEDS: SACUBITRIL/VALSARTAN 24 MG-26 MG TABLET PO SCH (19:55)
[2022-08-01] MEDS: ATORVASTATIN 40 MG TAB PO SCH (19:55)
[2022-08-01] MEDS ORDERED: ZOLPIDEM 5 MG TAB PO PRN (21:25)
[2022-08-02] MEDS: PANTOPRAZOLE 40 MG/10 ML VIAL IV SCH (02:49)
[2022-08-02] MEDS: PANTOPRAZOLE 40 MG TABLET PO SCH (06:24)
--- NOTE | 2022-08-02 07:13 | P.PN ---
Subjective Progress Note Date: 08/01/22 Patient was seen for a follow-up. Patient's one of the caregiver was present. Patient is today much more alert and awake. Denies headache. Caregivers states that his brain is still slightly foggy, forgetful. No new concerns. Objective - Vital Signs Vital signs: Vital Signs Temp 97.6 F 08/01/22 11:38 Pulse 80 08/01/22 09:39 Resp 20 08/01/22 11:38 BP 137/86 08/01/22 11:38 Pulse Ox 96 08/01/22 11:38 FiO2 Intake & Output 07/31/22 08/01/22 08/01/22 18:59 06:59 18:59 Intake Total 75 Output Total 200 Balance 75 -200 Weight 81.647 kg Intake: IV 75 Output: Urine 200 Other: Voiding Method Urinal Urinal # Voids 2 1 - Exam Patient is alert and awake. His speech still has slight word finding difficulty. He can express himself. Patient has complete right homonymous hemianopia. Face appears symmetric and tongue protrudes the midline. Patient has mild right pronation, no drift. Strength is normal in the upper limbs. - Labs CBC & Chem 7: 07/30/22 08:27 08/01/22 10:47 Labs: Abnormal Lab Results - Last 24 Hours (Table) 08/01/22 Range/Units 10:47 Chloride 111 H (98-107) mmol/L Glucose 105 H (74-99) mg/dL Microbiology - Last 24 Hours (Table) 07/29/22 17:15 Blood Culture - Preliminary Blood No Growth after 48 hours Assessment and Plan Assessment: * Acute/subacute ischemia within the left thalamus, left temporal lobe and bilateral occipital lobes consistent with embolic infarctions from cardiac source. Patient had presented with some mental confusion, slight aphasia and complete right homonymous hemianopia. * New onset atrial fibrillation * Borderline elevated cardiac enzymes. * 3 month history of leg weakness, unclear cause. MRI of the lumbar spine showed moderate to severe central canal stenosis at L4-L5. Plan: * MRI brain revealed acute/subacute ischemia within the left thalamus, left tem poral lobe and bilateral occipital lobes, corresponding to the recent CT. Susceptibility artifact identified within the bilateral thalami, left occipital lobe and left frontal lobe, consistent with microhemorrhage. I personally reviewed MRI, I agree with the findings. * Anticoagulation on hold because of above finding. * Repeat CT head performed today reveals similar appearance of known left o ccipital lobe, temporal lobe, and thalamus ischemia without CT evidence for hemorrhagic conversion. * Continue aspirin 81 mg daily for now. * JALEN performed 07/31/2022 revealed dilated left atrium, with normal appearance of the left atrial appendage. Severely impaired left ventricular systolic function with global hypokinesis and EF 25-30%. Moderate mitral with [id number] tricuspid regurgitation. No shunting across the interatrial septum. * As there was no thrombus seen in the echo, we will consider re-starting anticoagulation in 1-2 days, given his risk for recurrent embolism. * MRI of the lumbar spine revealed moderate spinal stenosis at L4-L5 level. I personally reviewed MRI, and appears at least moderate to severe stenosis at this level. * B12 1063, folate 40.0, hemoglobin A1c 5.9, lipid panel cholesterol 131, LDL 84, HDL 31 and triglycerides 74. Start Lipitor 40 mg daily. * EEG was mildly abnormal due to background slowing, suggestive of mild encephalopathy. No epileptiform activity was seen. * Stat 2-D echo revealed cardiomyopathy with severe left ventricle systolic dys function with EF 25-30%. Left atrium with mild dilation. Mild to moderate MR. Cardiology on board. * Discussed with patient's caregiver in detail.
[2022-08-02] MEDS: IPRATROPIUM-ALBUTEROL 3 ML NEB INHALATION SCH ×4 (08:52→20:20)
[2022-08-02] MEDS: BUDESONIDE 1 MG/2 ML NEBU INHALATION SCH ×2 (08:52→20:20)
[2022-08-02] MEDS: FORMOTEROL FUMARATE 20 MCG/2 ML NEBU INHALATION SCH ×2 (08:52→20:20)
[2022-08-02] MEDS ORDERED: SACUBITRIL/VALSARTAN 24 MG-26 MG TABLET PO SCH (09:00)
[2022-08-02 09:17] LABS: ALT 278 U/L (4-49); AST 276 U/L (17-59); African American GFR (CKD) >90 (>60 ml/min/1.73 sqM); Albumin 3.2 g/dL (3.5-5.0); Alkaline Phosphatase 358 U/L (38-126); Anion Gap 9 mmol/L; Blood Urea Nitrogen 8 mg/dL (9-20); Calcium 8.8 mg/dL (8.4-10.2); Carbon Dioxide 26 mmol/L (22-30); Chloride 104 mmol/L (98-107); Glucose 97 mg/dL (74-99); Non-African American GFR(CKD) >90 (>60 ml/min/1.73 sqM); Potassium 3.7 mmol/L (3.5-5.1); Sodium 139 mmol/L (137-145); Total Bilirubin 4.4 mg/dL (0.2-1.3); Total Protein 6.2 g/dL (6.3-8.2)
[2022-08-02] MEDS: METOPROLOL TARTRATE 50 MG TAB PO SCH ×2 (09:24→20:05)
[2022-08-02] MEDS: SACUBITRIL/VALSARTAN 24 MG-26 MG TABLET PO SCH ×2 (09:24→20:05)
[2022-08-02] MEDS: DAPAGLIFLOZIN PROPANEDIOL 10 MG TABLET PO SCH (09:24)
[2022-08-02] MEDS: SPIRONOLACTONE 25 MG TAB PO SCH (09:24)
[2022-08-02] MEDS: ASPIRIN 81 MG PO SCH (09:24)
[2022-08-02 11:29] LABS: Basophils % (A) 0 %; Eosinophils # (A) 0.2 k/uL (0-0.7); Eosinophils % (A) 1 %; HCT 45.5 % (39.0-53.0); HGB 14.9 gm/dL (13.0-17.5); Lymphocytes # (A) 1.4 k/uL (1.0-4.8); Lymphocytes % (A) 12 %; MCH 30.9 pg (25.0-35.0); MCHC 32.7 g/dL (31.0-37.0); MCV 94.5 fL (80.0-100.0); Mean Platelet Volume 9.3; Monocytes # (A) 0.6 k/uL (0-1.0); Monocytes % (A) 5 %; Neutrophils # (A) 9.4 k/uL (1.3-7.7); Neutrophils % (A) 81 %; Platelet Count 284 k/uL (150-450); RBC 4.82 m/uL (4.30-5.90); RDW 13.3 % (11.5-15.5); WBC 11.6 k/uL (3.8-10.6)
--- NOTE | 2022-08-02 12:04 | P.PN ---
Subjective Progress Note Date: 08/02/22 PROGRESS NOTE The patient is a 76-year-old male who presented with evidence of CVA, was noted to be in atrial flutter ablation of unknown duration. He underwent a JALEN that showed no evidence of intracardiac thrombus. He was found to have severely impaired systolic function. Clinically he is stable. He continues to have episodes of confusion but he denies any chest discomfort, dizziness or palpitations. His liver function test and his bilirubin are elevated but he denies any abdominal pain, nausea or vomiting. He is not anticoagulated yet awaiting recommendations from the neurology service. Medications: Aspirin, metoprolol 50 mg twice a day, Aldactone 25 mg daily,Entresto 2426 twice a day,Farxiga 10 mg daily, atorvastatin 40 mg daily. PHYSICAL EXAMINATION: Blood pressure 124/70 heart rate 55 LUNGS: Clear to auscultation HEART: Regular rate and rhythm, S1, S2. No S3. systolic ejection murmur ABDOMEN: Soft, nontender, no organomegaly EXTREMETIES: No edema LAB: WBC 11.6. Hemoglobin 14.9. Potassium 3.7, BUN 8, creatinine 0.72. Bilirubin up to 4.4, AST 276 ALT 278. IMPRESSION: 1. Acute CVA 2. Atrial fibrillation of unknown duration, back in sinus mechanism 3. Elevated bilirubin and abnormal liver function test etiology unclear 4. Cardiomyopathy PLAN: 1. Start anticoagulation when acceptable with neurology 2. Hold statin in view of liver function abnormality 3. Follow blood pressure 4. Workup of abnormal bilirubin 5. Depending on his progress further recommendations will be made Objective - Vital Signs Vital signs: Vital Signs Temp 98.1 F 08/02/22 07:17 Pulse 70 08/02/22 09:14 Resp 24 08/02/22 08:00 BP 124/76 08/02/22 07:17 Pulse Ox 94 L 08/02/22 08:55 FiO2 Intake & Output 08/01/22 08/02/22 08/02/22 18:59 06:59 18:59 Intake Total 180 Output Total 625 Balance -445 Intake: Oral 180 Output: Urine 225 Emesis 400 Other: Voiding Method Urinal Diaper Diaper # Voids 2 1 # Emeses 4 - Labs CBC & Chem 7: 08/02/22 11:03 08/02/22 08:16 Labs: Abnormal Lab Results - Last 24 Hours (Table) 08/02/22 08/02/22 08/02/22 Range/Units 08:16 11:03 11:03 WBC 11.6 H (3.8-10.6) k/uL Neutrophils # 9.4 H (1.3-7.7) k/uL BUN 8 L (9-20) mg/dL Total Bilirubin 4.4 H (0.2-1.3) mg/dL GGT 546 H (15-73) U/L AST 276 H (17-59) U/L ALT 278 H (4-49) U/L Alkaline Phosphatase 358 H (38-126) U/L Total Protein 6.2 L (6.3-8.2) g/dL Albumin 3.2 L (3.5-5.0) g/dL Microbiology - Last 24 Hours (Table) 07/29/22 17:15 Blood Culture - Preliminary Blood No Growth after 72 hours
[2022-08-02] MEDS: SODIUM CHLORIDE 0.9% 1,000 ML IV SCH ×2 (14:20)
--- NOTE | 2022-08-02 14:53 | P.PN ---
Subjective Progress Note Date: 08/02/22 I am seeing this patient in new consultation today 07/30/2022 in the emergency room for increased oxygen demands. Patient is a 76-year-old male who is brought in by his friends yesterday after being found down at his home. Patient is currently confused and a poor historian. Apparently, the patient was last seen well 10 days ago by his friends. Patient does not have any family and lives at home alone. He reportedly has not been to a doctor in some time. He is a current smoker. On arrival to the emergency room, patient was found to be in atrial fibrillation with rapid ventricular rate. He was started on amiodarone which is currently infusing at a rate of 0.5 mg/m. Patient also has low inten sity heparin infusing at 1143 units per hour. Most recent aPTT was subtherapeutic at 35.8. Troponins were mildly elevated at 0.057. NT proBNP mildly elevated at 2990. He was also hypoxic on arrival, and is currently on 3 L nasal cannula oxygenating at 100%. This could probably be weaned down. Initial chest x-ray showed no acute cardiopulmonary process with some elevation of the right hemidiaphragm which could be related to diaphragmatic paralysis versus hernia. A follow-up chest CT also showed no acute cardiopulmonary process. He was negative for COVID-19, influenza, RSV. Procalcitonin level was low at 0.07. Patient's CT of the brain and C-spine without contrast showed a hypodense area within the left occipital lobe with effacement of adjacent foci and could indicate acute infarct. There was also a hypodense area within the left thalamus of indeterminate age. Recommended MRI follow-up. Patient's CBC on arrival showed some leukocytosis with a WBC count of 19.9, hemoglobin 18, hematocrit 54.9, platelets 431,000. Patient's BMP on arrival showed a sodium 152, potassium 4.1, chloride 113, serum CO2 25, BUN 27, creatinine 1.01, glucose 156. Lactic acid level was elevated on admission, and is down to 1.2. Patient was given 2 L normal saline bolus in the emergency room. No IV maintenance fluids are infusing. Currently, patient's vital signs are stable. On today's evaluation of 07/31/2022, the patient is being seen for a follow-up. The patient remains somewhat confused. He is overall improving however. His EKG is still showing H of fibrillation and the rate is controlled at this point in time. His echocardiogram showed a week LV function with an ejection fraction of 25-30% and the patient [id number] mitral regurgitation. MRI of the brain also showed acute/subacute ischemic changes in the left thalamus left temporal lobe and bilateral occipital lobes corresponding with recent CAT scan. This could be potentially a embolic phenomena. Otherwise, is blood work from today is also showing abnormal LFTs, and an ultrasound of the abdomen and the right upper quadrant was ordered. His AST was 167, ALP was also elevated at 167, alkaline phosphatase is 129. His sodium levels of 139, BUN is at 50 with a creatinine of 0.7. Electrolytes show a low potassium of 3.4. He is currently on metoprolol 50 mg by mouth twice a day. He is also on Aldactone. No di uretics. He still receiving local relatives and is also on aspirin. On 08/01/2022, the patient is overall respiratory status is stable. No significant respiratory difficulties. His resting comfortably in bed and is currently on room air oxygen. Noted the patient also has had multiple acute/subacute ischemic changes involving left thalamus, left temporal lobe and bilateral occipital lobes and this was considered to be embolic in nature. A JALEN was done yesterday that showed no significant abnormalities. The patient has converted into normal sinus rhythm. The patient is also was found to have severe systolic heart failure with an ejection fraction of 25-30% and remodeler on the case to optimize his CHF. A repeat CAT scan of the brain was also done yesterday that showed no evidence of any hemorrhagic transformation. The findings were essentially similar involving the occipital t emporal area lobes and the thalamus. The patient is currently on aspirin. Patient is also being considered for full skin anticoagulation once cleared by neurology. 08/02/2022, no new complaints and the patient is still having episodes of confusion and the patient is weak and has no demonstrated since his admission to the hospital. Family is at the bedside. Rest or status is stable. CHF is op timized. The patient is on aspirin and anticoagulation has not been started yet. On a separate note, the patient is having further workup regarding abnormal LFTs. The patient ultrasound of the abdomen that showed hepatic cysts, no significant abnormalities., But duct was not seen because of gas. Gallbladder was within normal the small portion that was seen. Sonographic Du sign was negative. The patient has an upcoming HIDA scan. Objective - Vital Signs Vital signs: Vital Signs Temp 97.4 F L 08/02/22 11:50 Pulse 72 08/02/22 12:15 Resp 20 08/02/22 11:50 BP 130/73 08/02/22 11:50 Pulse Ox 94 L 08/02/22 08:55 FiO2 Intake & Output 08/01/22 08/02/22 08/02/22 18:59 06:59 18:59 Intake Total 180 Output Total 625 Balance -445 Intake: Oral 180 Output: Urine 225 Emesis 400 Other: Voiding Method Urinal Diaper Diaper # Voids 2 1 # Emeses 4 - Exam GENERAL EXAM: Alert but disoriented 76-year-old male, he is comfortable in no apparent distress. HEAD: Normocephalic and atraumatic EYES: Normal reaction of pupils, equal size. NOSE: Clear with pink turbinates. THROAT: No erythema or exudates. NECK: No masses, no JVD. CHEST: No chest wall deformity. LUNGS: Equal air entry with no crackles, wheeze, rhonchi or dullness. On 3 L nasal cannula. No conversational dyspnea or accessory muscle use.. CVS: S1 and S2 normal with no audible murmur, regular rhythm. No extra heart sounds ABDOMEN: No hepatosplenomegaly, active bowel sounds, no guarding or rigidity. SPINE: No scoliosis or deformity SKIN: No rashes CENTRAL NERVOUS SYSTEM: No focal deficits, tone is normal in all 4 extremities. EXTREMITIES: There is no peripheral edema, clubbing, or cyanosis. Peripheral pulses are intact. - Labs CBC & Chem 7: 08/02/22 11:03 08/02/22 08:16 Labs: Abnormal Lab Results - Last 24 Hours (Table) 08/02/22 08/02/22 08/02/22 Range/Units 08:16 11:03 11:03 WBC 11.6 H (3.8-10.6) k/uL Neutrophils # 9.4 H (1.3-7.7) k/uL BUN 8 L (9-20) mg/dL Total Bilirubin 4.4 H (0.2-1.3) mg/dL GGT 546 H (15-73) U/L AST 276 H (17-59) U/L ALT 278 H (4-49) U/L Alkaline Phosphatase 358 H (38-126) U/L Total Protein 6.2 L (6.3-8.2) g/dL Albumin 3.2 L (3.5-5.0) g/dL Microbiology - Last 24 Hours (Table) 07/29/22 17:15 Blood Culture - Preliminary Blood No Growth after 72 hours Assessment and Plan Assessment: COPD exacerbation. Clinically recovered and the patient's overall respiratory status is back to its baseline. Patient has a significant smoking history. He was negative for COVID-19, influenza, RSV. Chest x-ray and chest CT show no sign of pneumonia or focal consolidation. Procalcitonin level was low at 0.07. The patient has recovered from his acute choked exacerbation is back to his baseline. Acute hypoxic respiratory failure secondary to above, currently on room air oxygen New-onset atrial fibrillation rate is controlled on metoprolol , converted to normal sinus rhythm CHF with systolic heart failure EF of around 25-30%, currently well optimized Elevated troponins likely secondary to supply/demand mismatch Suspected left occipital lobe acute infarct with unknown last well time. CT of the brain and C-spine without contrast showed a hypodense area within the left occipital lobe with effacement of the adjacent sulci. There was also hypodense area within the left thalamus of indeterminate age. MRI of the brain confirmed presence of acute/subacute stroke consistent with the CAT scan findings. Rule out underlying embolism. JALEN showed no significant abnormalities at least unofficially. Awaiting final report. The patient was started on aspirin and anticoagulation with Eliquis is to follow was pleased by neurology. Acute confusion, possibly secondary to above, improving, although not completely recovered Dehydration, improving Lactic acidosis, resolved Nicotine dependence Abnormal LFTs, currently under investigation. Ultrasound the abdomen was unrevealing. Awaiting HIDA scan. Abdominal exam is benign. Plan: Continue aspirin Anticoagulation is to follow once the patient is cleared by neurology Repeat CAT scan of the brain yesterday showed no evidence of any hemorrhagic transformation JALEN is negative for any cardiac thrombus Patient is On aspirin. Abnormal LFTs are noted and patient is getting a HIDA scan Stull Installer on the case Neurology is on the case Neuro checks We'll sign off the case and will leave the rest of the management to medicine.
--- NOTE | 2022-08-02 16:34 | PN ---
PROGRESS NOTE SUBJECTIVE: This 76-year-old white male remains on Lopressor, Zofran, Protonix, Entresto, Aldactone, Ambien, DuoNeb, aspirin, Lipitor. His oxygen has been weaned down, saturating 93 to 95 on room air. OBJECTIVE: VITAL SIGNS: Blood pressure 130s over 90s, pulse 70s to 80s, temperature 98.3. CARDIOVASCULAR: S1, S2. GI: Soft. HEMATOLOGY: Negative for Homans. NEUROLOGIC: Alert and oriented x3. Cranial nerves are intact LUNGS: Clear. PSYCH: Fair mood and affect. ASSESSMENT: Systolic ejection fraction, acute on chronic hypoxemic respiratory failure, COPD, higher procalcitonin. MRI followup for possible stroke. He has done 2 L of fluid bolusing for dehydration . JALEN showed no significant abnormalities, sinus rhythm. CAT scan of the brain, no evidence of hemorrhagic transformation temporal area in the thalamus, possible stroke. Blood pressure 140s over 90s, pulse 70s, respiratory rate 18 to 20, temperature 98.3, pulse 96. COPD exacerbation, acute hypoxemic respiratory failure, new onset atrial fibrillation, systolic function decreased . Acute infarct, possible thalamus. MRI of the brain is pending. JALEN is negative, acute confusion secondary to possible TIA versus CVA, dehydration, lactic acidosis improved. Continue IV fluids, , abnormal LFTs, aspirin anticoagulation, also on his abdomen. Cardiology is on case. Prognosis guarded. MMODL / IJN: [id number] /
--- NOTE | 2022-08-02 18:01 | NM ---
EXAMINATION TYPE: NM hepatobiliary wo EF DATE OF EXAM: 08/02/2022 COMPARISON: NONE HISTORY: elevated liver enzymes TECHNIQUE: After the intravenous administration of 4.6 mCi Tc 99m Mebrofenin hepatobiliary scintigrap hy is performed. Immediate images post injection. FINDINGS: There is homogeneous distribution radiotracer throughout the liver. Photopenic defect is noted at the gallbladder fossa. Delayed imaging was obtained up to approximately 4 hours without gallbladder visu alization or visualization of the small bowel. Common hepatic duct obstruction is not excluded. IMPRESSION: Correlate for common hepatic duct obstruction. As noted there is nonvisualization of the gallbladder or small bowel. Delayed 4 hour imaging. Consider ERCP or MRCP if indicated.
[2022-08-02 19:37] LABS: Hepatitis A Antibody IgM Nonreactive (Nonreactive); Hepatitis B Core IgM Nonreactive (Nonreactive); Hepatitis B Surface Antigen Nonreactive (Nonreactive); Hepatitis C IgG Antibody Nonreactive (Nonreactive)
[2022-08-03] MEDS: PANTOPRAZOLE 40 MG TABLET PO SCH (06:34)
[2022-08-03] MEDS: SODIUM CHLORIDE 0.9% 1,000 ML IV SCH ×2 (06:34→11:11)
--- NOTE | 2022-08-03 07:48 | PN ---
PROGRESS NOTE SUBJECTIVE: with systolic CHF, atrial fibrillation, RVR, COPD, CHF. He has remains on Farxiga, Perforomist, DuoNeb, aspirin, Lopressor, Entresto, aldactone. signs are improving. He is up ambulating a little bit better. OBJECTIVE: VITAL SIGNS: Temp 98.4, pulse 64, respiratory rate 16, O2 93% on room air. Blood pressure is 90s over 50s . CARDIOVASCULAR: S1, S2. HEMATOLOGY: Negative for Homans. HEENT: Pupils equal, round, reactive. He had HIDA scan, which showed hepatic duct obstruction. Consider the ERCP or MRCP. Wait for surgical consultation of his gallbladder. He has been transfused 2 units of blood. His prognosis is guarded. He is being treated for urinary tract infection of a large nature. Feels better after 2 units of blood. His hemoglobins are up over prognosis guarded. MMODL / IJN: [id number] /
[2022-08-03] MEDS: FORMOTEROL FUMARATE 20 MCG/2 ML NEBU INHALATION SCH ×2 (07:50→21:19)
[2022-08-03] MEDS: IPRATROPIUM-ALBUTEROL 3 ML NEB INHALATION SCH ×4 (07:50→21:19)
[2022-08-03] MEDS: BUDESONIDE 1 MG/2 ML NEBU INHALATION SCH ×2 (07:50→21:20)
--- NOTE | 2022-08-03 09:26 | P.GSCN ---
History of Present Illness Consult date: 08/03/22 Reason for Consult: Elevated liver enzymes History of present illness: This is a 76-year-old male who was admitted Dr. Alpesh Amaya service. Patient is noted to have elevated liver enzymes. Patient states he has no significant abdominal pain. His HIDA scan performed yesterday suggestive of a common hepatic duct obstruction. Patient states he has had no significant abdominal pain. He is resting in his bed comfortably. Past Medical History Past Medical History: No Reported History History of Any Multi-Drug Resistant Organisms: None Reported Past Surgical History: No Surgical Hx Reported Past Anesthesia/Blood Transfusion Reactions: No Reported Reaction Past Psychological History: No Psychological Hx Reported Smoking Status: Former smoker - Past Family History Mother Additional Family Medical History / Comment(s): of old age Father Family Medical History: Unable to Obtain Medications and Allergies Home Medications Medication Instructions Recorded Confirmed Type No Known Home Medications 07/29/22 07/29/22 History Allergies Allergy/AdvReac Type Severity Reaction Status Date / Time No Known Allergies Allergy Verified 07/29/22 17:44 Surgical - Exam Vital Signs Temp 98 F 07/29/22 15:57 - General well developed, no distress - Eyes PERRL - ENT normal pinna - Neck no masses - Respiratory normal expansion - Cardiovascular Rhythm: regular - Abdomen Abdomen: soft, non tender Results - Labs 08/02/22 11:03 08/02/22 08:16 Abnormal Lab Results - Last 24 Hours (Table) 08/02/22 08/02/22 Range/Units 11:03 11:03 WBC 11.6 H (3.8-10.6) k/uL Neutrophils # 9.4 H (1.3-7.7) k/uL GGT 546 H (15-73) U/L Microbiology - Last 24 Hours (Table) 07/29/22 17:15 Blood Culture - Preliminary Blood No Growth after 96 hours - Imaging Additional studies: Abdominal ultrasound shows a portion of the gallbladder. It is not well seen. It is unclear if there is no the gallbladder. I scan is suggestive of a common hepatic duct structure. The gallbladder was not visualized. Assessment and Plan Assessment: The patient should have an MRCP performed to evaluate possible bile duct obstruction. Patient may need ERCP.
[2022-08-03] MEDS: ASPIRIN 81 MG PO SCH (09:33)
[2022-08-03] MEDS: SPIRONOLACTONE 25 MG TAB PO SCH (09:33)
[2022-08-03] MEDS: METOPROLOL TARTRATE 50 MG TAB PO SCH ×2 (09:33→20:12)
[2022-08-03 10:19] LABS: ALT 217 U/L (4-49); AST 150 U/L (17-59); African American GFR (CKD) >90 (>60 ml/min/1.73 sqM); Albumin 3.2 g/dL (3.5-5.0); Alkaline Phosphatase 354 U/L (38-126); Anion Gap 9 mmol/L; Blood Urea Nitrogen 12 mg/dL (9-20); Calcium 8.4 mg/dL (8.4-10.2); Carbon Dioxide 26 mmol/L (22-30); Chloride 105 mmol/L (98-107); Glucose 100 mg/dL (74-99); Non-African American GFR(CKD) 88 (>60 ml/min/1.73 sqM); Potassium 3.6 mmol/L (3.5-5.1); Sodium 140 mmol/L (137-145); Total Bilirubin 1.8 mg/dL (0.2-1.3); Total Protein 6.1 g/dL (6.3-8.2)
[2022-08-03] MEDS: DAPAGLIFLOZIN PROPANEDIOL 10 MG TABLET PO SCH (11:17)
[2022-08-03] MEDS: SACUBITRIL/VALSARTAN 24 MG-26 MG TABLET PO SCH ×2 (11:17→20:12)
--- NOTE | 2022-08-03 11:43 | P.PN ---
Subjective Progress Note Date: 08/03/22 PROGRESS NOTE The patient is a 76-year-old male who presented with evidence of CVA, was noted to be in atrial flutter fibrillation of unknown duration. He underwent a JALEN that showed no evidence of intracardiac thrombus. He was found to have severely impaired systolic function. Clinically he is stable. He continues to have episodes of confusion but he denies any chest discomfort, dizziness or palpit ations. His liver function test and his bilirubin are elevated but he denies any abdominal pain, nausea or vomiting. He is not anticoagulated yet awaiting recommendations from the neurology service. August 03: The patient is feeling better overall. He denies any chest discomfort, dizziness or palpitations. Hemodynamically he is stable. He had an abnormal HIDA scan yesterday. His repeat bilirubin is better today. He denies any abdominal discomfort. He denies any nausea or vomiting. He continues to be in atrial fibrillation with controlled ventricular response. Medications: Aspirin, metoprolol 50 mg twice a day, Aldactone 25 mg daily,Entresto 2426 twice a day,Farxiga 10 mg daily, atorvastatin 40 mg daily. PHYSICAL EXAMINATION: Blood pressure 125/60 heart rate 70 LUNGS: Clear to auscultation HEART: Regular rate and rhythm, S1, S2. No S3. systolic ejection murmur ABDOMEN: Soft, nontender, no organomegaly EXTREMETIES: No edema LAB: Potassium 3.6, BUN 12, creatinine 0.78. Bilirubin 1.8, AST 150, ALT of7. IMPRESSION: 1. Acute CVA 2. Atrial fibrillation of unknown duration, back in sinus mechanism 3. Elevated bilirubin and abnormal liver function test etiology unclear, impr gita. Possible common hepatic duct stricture, possible passing of gallstones 4. Cardiomyopathy, unclear etiology PLAN: 1. Start anticoagulation when acceptable with neurology 2. . Awaiting the input of neurology. 3. The patient may require ERCP to evaluate his common bile duct 4. Continue present treatment. From the cardiac standpoint. Objective - Vital Signs Vital signs: Vital Signs Temp 97.4 F L 08/03/22 08:00 Pulse 70 08/03/22 11:13 Resp 18 08/03/22 08:00 BP 125/67 08/03/22 08:00 Pulse Ox 94 L 08/03/22 08:00 FiO2 Intake & Output 08/02/22 08/03/22 08/03/22 18:59 06:59 18:59 Intake Total 240 Balance 240 Intake: Oral 240 Other: Voiding Method Diaper Diaper Diaper # Voids 3 1 - Labs CBC & Chem 7: 08/02/22 11:03 08/03/22 09:19 Labs: Abnormal Lab Results - Last 24 Hours (Table) 08/02/22 08/03/22 Range/Units 11:03 09:19 Glucose 100 H (74-99) mg/dL Total Bilirubin 1.8 H (0.2-1.3) mg/dL GGT 546 H (15-73) U/L AST 150 H (17-59) U/L ALT 217 H (4-49) U/L Alkaline Phosphatase 354 H (38-126) U/L Total Protein 6.1 L (6.3-8.2) g/dL Albumin 3.2 L (3.5-5.0) g/dL Microbiology - Last 24 Hours (Table) 07/29/22 17:15 Blood Culture - Preliminary Blood No Growth after 96 hours
--- NOTE | 2022-08-03 11:53 | P.PN ---
Subjective Patient is an 76-year-old male being treated for medical medical problems including COPD exacerbation, atrial fibrillation with rapid ventricular rate presently rate controlled continue heart failure systolic dysfunction of 25-30% not in acute exacerbation and had a stroke before this hospitalization in the occipital lobe with a normal JALEN. Patient also has choledocholithiasis with elevated liver enzymes for which patient will undergo MRCP on Friday. She is presently receiving IV fluids which will be discontinue and patient is willing to this time. Patient is not wheezing. Constitutional: Denied any fatigue denied any fever. Cardio vascular: denied any chest pain, palpitations Gastrointestinal denied any nausea vomiting Pulmonary: Denied any shortness of breath cough Neurologic denied any new focal deficits All inpatient medications were reviewed and appropriate changes in these medications as dictated in the interval history and assessment and plan. PHYSICAL EXAMINATION: GENERAL: The patient is alert and oriented x3, not in any acute distress. Well developed, well nourished. HEENT: Pupils are round and equally reacting to light. EOMI. No scleral icterus. No conjunctival pallor. Normocephalic, atraumatic. No pharyngeal erythema. No thyromegaly. CARDIOVASCULAR: S1 and S2 present. No murmurs, rubs, or gallops. PULMONARY: Chest is clear to auscultation, no wheezing or crackles. ABDOMEN: Soft, nontender, nondistended, normoactive bowel sounds. No palpable organomegaly. MUSCULOSKELETAL: No joint swelling or deformity. EXTREMITIES: No cyanosis, clubbing, or pedal edema. NEUROLOGICAL: Gross neurological examination did not reveal any focal deficits. SKIN: No rashes. Assessment and plan -Elevated liver enzymes secondary to choledocholithiasis, MRCP on Friday -Acute severe vascular accident in the occipital lobe, embolic stroke without any went up to thrombus patient is grossly not in an and anti-correlation because of potential presently on aspirin patient initiated on anti-correlation once cleared by neurology to do so. Patient is presently rate controlled -Paroxysmal atrial fibrillation rapid unclear rate on admission presently rate controlled -Congestive heart failure chronic systolic dysfunction with EF of around 25-30% presently not in acute exacerbation, discontinue IV fluids patient is on Entresto and spironolactone which will be continued -Type 2 diabetes mellitus -COPD without any clicks admission presently DVT prophylaxis: Lovenox until he started on actual anticoagulation Objective - Vital Signs Vital signs: Vital Signs Temp 97.4 F L 04/22/23 08:00 Pulse 70 08/03/22 11:13 Resp 18 08/03/22 08:00 BP 125/67 08/03/22 08:00 Pulse Ox 94 L 08/03/22 08:00 FiO2 Intake & Output 08/02/22 08/03/22 08/03/22 18:59 06:59 18:59 Intake Total 240 Balance 240 Intake: Oral 240 Other: Voiding Method Diaper Diaper Diaper # Voids 3 1 - Labs CBC & Chem 7: 08/02/22 11:03 08/03/22 09:19 Labs: Abnormal Lab Results - Last 24 Hours (Table) 08/03/22 Range/Units 09:19 Glucose 100 H (74-99) mg/dL Total Bilirubin 1.8 H (0.2-1.3) mg/dL AST 150 H (17-59) U/L ALT 217 H (4-49) U/L Alkaline Phosphatase 354 H (38-126) U/L Total Protein 6.1 L (6.3-8.2) g/dL Albumin 3.2 L (3.5-5.0) g/dL Microbiology - Last 24 Hours (Table) 07/29/22 17:15 Blood Culture - Preliminary Blood No Growth after 96 hours
--- NOTE | 2022-08-03 14:37 | MR ---
EXAMINATION TYPE: MR MRCP DATE OF EXAM: 08/03/2022 COMPARISON: Ultrasound 07/31/2022 HISTORY: Common hepatic duct obstruction Standard multiplanar, multisequence MRI departmental protocol Multiplanar, multisequence images of the biliary tree were acquired without contrast. Diffusion weigh jeniffer imaging was performed. FINDINGS: There is a diminutive gallbladder with a large fold noted. No definite evidence for gallstone. Cystic duct appears patent as does the hepatic duct. The common bile duct is dilated to 11 mm at its midpor tion with tapering distally measuring approximately 2 mm. There is decreased signal noted which may r eflect calculus or polyp. Additional 5 millimeter calculus or polyp is seen within the distal common bile duct. See bookmark images. Intrahepatic biliary tree is of normal caliber. Couple of hepatic cysts are noted the largest within the periphery of the right hepatic lobe. No rafal d hepatic lesions seen. Pancreas is free of mass lesion. Pancreatic duct does not appear to be dilated. Renal cystic changes noted left kidney. No hydronephrosis. Atheromatous change abdominal aorta without aneurysm. IMPRESSION: 1. Common bile duct dilatation with distal narrowing identified. This could be result of previously p assed gallstones with parenchymal scarring however there is decreased signal noted which could reflec t distal calculus or polyp. Consider ERCP correlation. 2. Small contracted gallbladder with the mid pole left fold noted.
[2022-08-03] MEDS ORDERED: ENOXAPARIN 30 MG/0.3 ML SYRINGE SQ STA (15:25)
--- NOTE | 2022-08-03 15:32 | P.PN ---
Subjective Progress Note Date: 08/02/22 Patient was seen for a follow-up. Patient is laying comfortably in the bed. Patient denies headache. The nurse reported that patient is impulsive, fall risk. He is quite off balance when walking with his walker. Telemetry monitoring showing sinus rhythm with sinus bradycardia. Objective - Vital Signs Vital signs: Vital Signs Temp 97.8 F 08/02/22 19:27 Pulse 62 08/02/22 20:43 Resp 16 08/02/22 19:27 BP 133/72 08/02/22 19:27 Pulse Ox 93 L 08/02/22 19:27 FiO2 Intake & Output 08/02/22 08/02/22 08/03/22 06:59 18:59 06:59 Other: Voiding Method Urinal Diaper Diaper Diaper # Voids 1 3 - Exam Patient is alert and awake. Patient's speech and language functions have improved. No obvious aphasia. Cranial nerves significant for complete right homonymous hemianopia and very subtle right facial asymmetry. On muscle strength testing, patient has right pronation, no drift. The strength is normal in the upper limbs distally and proximally. In the lower limbs, hip flexion is 4-/4, normal ankle and the knees. Sensations are equal. No ataxia. - Labs CBC & Chem 7: 08/02/22 11:03 08/03/22 09:19 Labs: Abnormal Lab Results - Last 24 Hours (Table) 08/02/22 08/02/22 08/02/22 Range/Units 08:16 11:03 11:03 WBC 11.6 H (3.8-10.6) k/uL Neutrophils # 9.4 H (1.3-7.7) k/uL BUN 8 L (9-20) mg/dL Total Bilirubin 4.4 H (0.2-1.3) mg/dL GGT 546 H (15-73) U/L AST 276 H (17-59) U/L ALT 278 H (4-49) U/L Alkaline Phosphatase 358 H (38-126) U/L Total Protein 6.2 L (6.3-8.2) g/dL Albumin 3.2 L (3.5-5.0) g/dL Microbiology - Last 24 Hours (Table) 07/29/22 17:15 Blood Culture - Preliminary Blood No Growth after 96 hours Assessment and Plan Assessment: * Acute/subacute ischemia within the left thalamus, left temporal lobe and bilateral occipital lobes consistent with embolic infarctions from cardiac source. Patient had presented with some mental confusion, slight aphasia and complete right homonymous hemianopia. * New onset atrial fibrillation * Borderline elevated cardiac enzymes. * A 3 month history of leg weakness, unclear cause. MRI of the lumbar spine showed moderate to severe central canal stenosis at L4-L5. Plan: * MRI brain revealed acute/subacute ischemia within the left thalamus, left temporal lobe and bilateral occipital lobes, corresponding to the recent CT. Susceptibility artifact identified within the bilateral thalami, left occipital lobe and left frontal lobe, consistent with microhemorrhage. I personally reviewed MRI, I agree with the findings. * Repeat CT head performed 07/31/2022 reveals similar appearance of known left occipital lobe, temporal lobe, and thalamus ischemia without CT evidence for hemorrhagic conversion. * Continue aspirin 81 mg daily for now. * JALEN performed 07/31/2022 revealed dilated left atrium, with normal appearance of the left atrial appendage. Severely impaired left ventricular systolic function with global hypokinesis and EF 25-30%. Moderate mitral with [id number] tricuspid regurgitation. No shunting across the interatrial septum. * As there was no thrombus seen in the echo, we will consider re-starting anti coagulation from 08/04/2022. Aspirin will be discontinued after 08/03/2022. * MRI of the lumbar spine revealed moderate spinal stenosis at L4-L5 level. I personally reviewed MRI, and appears at least moderate to severe stenosis at this level. * B12 1063, folate 40.0, hemoglobin A1c 5.9, lipid panel cholesterol 131, LDL 84, HDL 31 and triglycerides 74. Start Lipitor 40 mg daily. * EEG was mildly abnormal due to background slowing, suggestive of mild encephalopathy. No epileptiform activity was seen. * Stat 2-D echo revealed cardiomyopathy with severe left ventricle systolic dysfunction with EF 25-30%. Left atrium with mild dilation. Mild to moderate MR. Cardiology on board. * Patient is pending guardianship and then believed based in SNF.
[2022-08-04] MEDS: PANTOPRAZOLE 40 MG TABLET PO SCH (06:27)
[2022-08-04] MEDS: APIXABAN 5 MG TAB PO SCH ×2 (07:35→20:14)
[2022-08-04] MEDS: SPIRONOLACTONE 25 MG TAB PO SCH (07:35)
[2022-08-04] MEDS: SACUBITRIL/VALSARTAN 24 MG-26 MG TABLET PO SCH ×2 (07:35→20:14)
[2022-08-04] MEDS: DAPAGLIFLOZIN PROPANEDIOL 10 MG TABLET PO SCH (07:36)
[2022-08-04] MEDS: METOPROLOL TARTRATE 50 MG TAB PO SCH ×2 (07:47→20:14)
[2022-08-04] MEDS ORDERED: Potassium Replacement Protocol 1 EACH MISC MISCELLANE PRN (08:03)
[2022-08-04] MEDS: SODIUM CHLORIDE 0.9% 1,000 ML IV SCH (08:44)
[2022-08-04] MEDS ORDERED: POTASSIUM CHLORIDE ER 20 MEQ TAB.ER PO SCH (09:00)
[2022-08-04] MEDS ORDERED: ENOXAPARIN 30 MG/0.3 ML SYRINGE SQ SCH (09:00)
[2022-08-04] MEDS: IPRATROPIUM-ALBUTEROL 3 ML NEB INHALATION SCH ×4 (09:05→20:42)
[2022-08-04] MEDS: BUDESONIDE 1 MG/2 ML NEBU INHALATION SCH ×2 (09:05→20:43)
[2022-08-04] MEDS: FORMOTEROL FUMARATE 20 MCG/2 ML NEBU INHALATION SCH ×2 (09:05→20:42)
[2022-08-04 09:37] LABS: HCT 41.7 % (39.0-53.0); HGB 13.6 gm/dL (13.0-17.5); MCH 30.9 pg (25.0-35.0); MCHC 32.6 g/dL (31.0-37.0); MCV 94.8 fL (80.0-100.0); Mean Platelet Volume 9.5; Platelet Count 275 k/uL (150-450); RBC 4.39 m/uL (4.30-5.90); RDW 13.5 % (11.5-15.5); WBC 8.9 k/uL (3.8-10.6)
[2022-08-04 09:56] LABS: ALT 145 U/L (4-49); AST 70 U/L (17-59); African American GFR (CKD) >90 (>60 ml/min/1.73 sqM); Alkaline Phosphatase 264 U/L (38-126); Anion Gap 7 mmol/L; Blood Urea Nitrogen 8 mg/dL (9-20); Calcium 8.3 mg/dL (8.4-10.2); Carbon Dioxide 26 mmol/L (22-30); Chloride 105 mmol/L (98-107); Glucose 144 mg/dL (74-99); Non-African American GFR(CKD) >90 (>60 ml/min/1.73 sqM); Potassium 3.8 mmol/L (3.5-5.1); Sodium 138 mmol/L (137-145); Total Bilirubin 1.1 mg/dL (0.2-1.3); Total Protein 5.9 g/dL (6.3-8.2)
--- NOTE | 2022-08-04 09:57 | P.PN ---
Progress Note - Text Progress Note Date: 08/04/22 Patient has no complaints of abdominal pain. His recent MRCP shows evidence of possible distal bile duct narrowing which could be related to passing of a gallstone. Patient's liver function tests have improved. On exam vital signs are stable. Abdomen soft. Patient will continue to have his liver function tests monitor. He may require ERCP.
--- NOTE | 2022-08-04 10:57 | P.PN ---
Subjective Progress Note Date: 08/04/22 PROGRESS NOTE The patient is a 76-year-old male who presented with evidence of CVA, was noted to be in atrial flutter fibrillation of unknown duration. He underwent a JALEN that showed no evidence of intracardiac thrombus. He was found to have severely impaired systolic function. Clinically he is stable. He continues to have episodes of confusion but he denies any chest discomfort, dizziness or palpit ations. His liver function test and his bilirubin are elevated but he denies any abdominal pain, nausea or vomiting. He is not anticoagulated yet awaiting recommendations from the neurology service. August 03: The patient is feeling better overall. He denies any chest discomfort, dizziness or palpitations. Hemodynamically he is stable. He had an abnormal HIDA scan yesterday. His repeat bilirubin is better today. He denies any abdominal discomfort. He denies any nausea or vomiting. He continues to be in atrial fibrillation with controlled ventricular response. August 04: The patient feels better today, he appears to be more awake. His bilirubin is down. He continues to be hemodynamically stable. He denies any chest discomfort, dizziness or palpitations. He was started on anticoagulation today. The patient has evidence of cardiomyopathy of unknown etiology but he has no evidence of acute CHF at this time. Medications: Aspirin, metoprolol 50 mg twice a day, Aldactone 25 mg daily,Entresto 2426 twice a day,Farxiga 10 mg daily, atorvastatin 40 mg daily. PHYSICAL EXAMINATION: Blood pressure 129/70 heart rate 75 LUNGS: Clear to auscultation HEART: Regular rate and rhythm, S1, S2. No S3. systolic ejection murmur ABDOMEN: Soft, nontender, no organomegaly EXTREMETIES: No edema LAB: Potassium 3.8, BUN 7, creatinine 0.66. Bilirubin 1.1 8, AST 70, ALT 145. IMPRESSION: 1. Acute CVA, stable 2. Atrial fibrillation of unknown duration, back in sinus mechanism, anticoagulation started yesterday 3. Elevated bilirubin and abnormal liver function test etiology unclear, impro taryn. Possible common hepatic duct stricture, possible passing of gallstones 4. Cardiomyopathy, unclear etiology PLAN: 1. Continue present treatment 2. Increase physical activity 3. Patient would require further cardiac workup once stable from the neurological standpoint. Objective - Vital Signs Vital signs: Vital Signs Temp 97.4 F L 08/04/22 07:27 Pulse 62 08/04/22 09:30 Resp 16 08/04/22 07:27 BP 154/82 08/04/22 07:27 Pulse Ox 96 08/04/22 09:05 FiO2 Intake & Output 08/03/22 08/04/22 08/04/22 18:59 06:59 18:59 Intake Total 600 420 Balance 600 420 Intake: Oral 600 420 Other: Voiding Method Diaper Diaper Diaper # Voids 2 - Labs CBC & Chem 7: 08/04/22 09:25 08/04/22 09:25 Labs: Abnormal Lab Results - Last 24 Hours (Table) 08/04/22 Range/Units 09:25 BUN 8 L (9-20) mg/dL Glucose 144 H (74-99) mg/dL Calcium 8.3 L (8.4-10.2) mg/dL AST 70 H (17-59) U/L ALT 145 H (4-49) U/L Alkaline Phosphatase 264 H (38-126) U/L Total Protein 5.9 L (6.3-8.2) g/dL Albumin 3.0 L (3.5-5.0) g/dL Microbiology - Last 24 Hours (Table) 07/29/22 17:15 Blood Culture - Preliminary Blood No Growth after 120 hours
--- NOTE | 2022-08-04 14:11 | P.PN ---
Subjective Progress Note Date: 08/04/22 Patient is an 76-year-old male being treated for medical medical problems including COPD exacerbation, atrial fibrillation with rapid ventricular rate presently rate controlled continue heart failure systolic dysfunction of 25-30% not in acute exacerbation and had a stroke before this hospitalization in the occipital lobe with a normal JALEN. Patient also has choledocholithiasis with elevated liver enzymes for which patient will undergo MRCP on Friday. She is presently receiving IV fluids which will be discontinue and patient is willing to this time. Patient is not wheezing. 08/04/2022 Patient evaluated today resting in bed. No acute complaints overnight. Patient had MRCP done showing common bile duct dilation with distal narrowing identified. This could be previously passed gallstone with parenchymal scarring. There is decreased signal noted which could reflect distal calculus or polyp. Consider ERCP. There is small contracted gallbladder with the mild pole left fold noted. General surgery is following this. Patients abdominal pain has resolved at this time and LFTs are improving. Patient has been resumed on oral anticoagulation with eliquis. Cardiology following and recommending further cardiac work up once neurologically clear. PT is recommending subacute rehab. Review of Systems Constitutional: Denied any fatigue denied any fever. Cardio vascular: denied any chest pain, palpitations Gastrointestinal denied any nausea vomiting Pulmonary: Denied any shortness of breath cough Neurologic denied any new focal deficits All inpatient medications were reviewed and appropriate changes in these medications as dictated in the interval history and assessment and plan. PHYSICAL EXAMINATION: GENERAL: The patient is alert and oriented x3, not in any acute distress. Well developed, well nourished. HEENT: Pupils are round and equally reacting to light. EOMI. No scleral icterus. No conjunctival pallor. Normocephalic, atraumatic. No pharyngeal erythema. No thyromegaly. CARDIOVASCULAR: S1 and S2 present. No murmurs, rubs, or gallops. PULMONARY: Chest is clear to auscultation, no wheezing or crackles. ABDOMEN: Soft, nontender, nondistended, normoactive bowel sounds. No palpable organomegaly. MUSCULOSKELETAL: No joint swelling or deformity. EXTREMITIES: No cyanosis, clubbing, or pedal edema. NEUROLOGICAL: Gross neurological examination did not reveal any focal deficits. SKIN: No rashes. Assessment and plan -Elevated liver enzymes secondary to choledocholithiasis, MRCP showing patient possibly had passed a gallstone. Surgery following and LFTs are improving. Repe at [facility] tomorrow. -Acute cerebral vascular accident in the occipital lobe, temporal lobe, and thalamus. [place] to be an embolic stroke. Follow up brain CT shows no hemorrhagic conversion and patient has been resumed on oral anticoagulation. -Paroxysmal atrial fibrillation rapid unclear rate on admission presently in normal sinus rhythm -Acute hypoxic respiratory failure on admission, improved and on room air. -Congestive heart failure chronic systolic dysfunction with EF of around 25-30% presently not in acute exacerbation on home medications. -Type 2 diabetes mellitus -COPD without any clicks admission presently -Cardiomyopathy unclear etiology with cardiology following closely. -Former tobacco use DVT prophylaxis: Resumed on oral anticoagulation with eliquis Patient will require subacute rehab on discharge The impression and plan of care has been dictated by Kathy Vitale, Nurse Practitioner as directed. Dr. Adams MD I have performed a history and physical examination and medical decision making of this patient, discussed the same with the dictator, and agree with the dictators assessment and plan as written, documented as a scribe. Based on total visit time, I have performed more than 50% of this visit. Objective - Vital Signs Vital signs: Vital Signs Temp 97.4 F L 08/04/22 07:27 Pulse 60 08/04/22 09:19 Resp 16 08/04/22 07:27 BP 154/82 08/04/22 07:27 Pulse Ox 96 08/04/22 09:05 FiO2 Intake & Output 08/03/22 08/04/22 08/04/22 18:59 06:59 18:59 Intake Total 600 420 Balance 600 420 Intake: Oral 600 420 Other: Voiding Method Diaper Diaper Diaper # Voids 2 - Labs CBC & Chem 7: 08/04/22 09:25 08/04/22 09:25 Labs: Abnormal Lab Results - Last 24 Hours (Table) 08/03/22 Range/Units 09:19 Glucose 100 H (74-99) mg/dL Total Bilirubin 1.8 H (0.2-1.3) mg/dL AST 150 H (17-59) U/L ALT 217 H (4-49) U/L Alkaline Phosphatase 354 H (38-126) U/L Total Protein 6.1 L (6.3-8.2) g/dL Albumin 3.2 L (3.5-5.0) g/dL Microbiology - Last 24 Hours (Table) 07/29/22 17:15 Blood Culture - Preliminary Blood No Growth after 120 hours Assessment and Plan Time with Patient: Less than 30
--- NOTE | 2022-08-04 20:19 | P.PN ---
Subjective Progress Note Date: 08/04/22 This is a telemedicine neurology follow-up performed today on 08/04/2022. Patient was seen for a follow-up. Patient is laying comfortably in the bed. Patient denies headache. Patient denies any pain anywhere. Objective - Vital Signs Vital signs: Vital Signs Temp 97.4 F L 08/04/22 07:27 Pulse 62 08/04/22 09:30 Resp 16 08/04/22 07:27 BP 154/82 08/04/22 07:27 Pulse Ox 96 08/04/22 09:05 FiO2 Intake & Output 08/03/22 08/04/22 08/04/22 18:59 06:59 18:59 Intake Total 600 420 Balance 600 420 Intake: Oral 600 420 Other: Voiding Method Diaper Diaper Diaper # Voids 2 - Exam Patient is alert and awake. Patient's speech and language functions have improved. No obvious aphasia. Cranial nerves significant for complete right homonymous hemianopia and very subtle right facial asymmetry. On muscle strength testing, patient has right pronation, no drift. The strength is normal in the upper limbs distally and proximally. In the lower limbs, hip flexion is 4-/4, normal ankle and the knees. Sensations are equal. No ataxia. - Labs CBC & Chem 7: 08/04/22 09:25 08/04/22 09:25 Labs: Abnormal Lab Results - Last 24 Hours (Table) 08/03/22 08/04/22 Range/Units 09:19 09:25 BUN 8 L (9-20) mg/dL Glucose 100 H 144 H (74-99) mg/dL Calcium 8.3 L (8.4-10.2) mg/dL Total Bilirubin 1.8 H (0.2-1.3) mg/dL AST 150 H 70 H (17-59) U/L ALT 217 H 145 H (4-49) U/L Alkaline Phosphatase 354 H 264 H (38-126) U/L Total Protein 6.1 L 5.9 L (6.3-8.2) g/dL Albumin 3.2 L 3.0 L (3.5-5.0) g/dL Microbiology - Last 24 Hours (Table) 07/29/22 17:15 Blood Culture - Preliminary Blood No Growth after 120 hours Assessment and Plan Assessment: * Acute/subacute ischemia within the left thalamus, left temporal lobe and bilateral occipital lobes consistent with embolic infarctions from cardiac source. Patient had presented with some mental confusion, slight aphasia and complete right homonymous hemianopia. * New onset atrial fibrillation * Borderline elevated cardiac enzymes. * A 3 month history of leg weakness, unclear cause. MRI of the lumbar spine showed moderate to severe central canal stenosis at L4-L5. Plan: * MRI brain revealed acute/subacute ischemia within the left thalamus, left temporal lobe and bilateral occipital lobes, corresponding to the recent CT. Susceptibility artifact identified within the bilateral thalami, left occipital lobe and left frontal lobe, consistent with microhemorrhage. I personally reviewed MRI, I agree with the findings. * Repeat CT head performed 07/31/2022 reveals similar appearance of known left occipital lobe, temporal lobe, and thalamus ischemia without CT evidence for hemorrhagic conversion. * Continue aspirin 81 mg daily for now. * JALEN performed 07/31/2022 revealed dilated left atrium, with normal appearance of the left atrial appendage. Severely impaired left ventricular systolic function with global hypokinesis and EF 25-30%. Moderate mitral with [id number] tricuspid regurgitation. No shunting across the interatrial septum. * Patient started on Eliquis 5 mg twice a day from this morning. Patient denies headache. Aspirin discontinued after 08/03/2022. * MRI of the lumbar spine revealed moderate spinal stenosis at L4-L5 level. I personally reviewed MRI, and appears at least moderate to severe stenosis at this level. We will consult orthopedic spine for lumbar spinal stenosis, to get their opinion. * B12 1063, folate 40.0, hemoglobin A1c 5.9, lipid panel cholesterol 131, LDL 84, HDL 31 and triglycerides 74. Start Lipitor 40 mg daily. * EEG was mildly abnormal due to background slowing, suggestive of mild encephalopathy. No epileptiform activity was seen. * Stat 2-D echo revealed cardiomyopathy with severe left ventricle systolic dysfunction with EF 25-30%. Left atrium with mild dilation. Mild to moderate MR. Cardiology on board. * Patient is pending guardianship and then believed based in SNF. * Dr. Oscar Cobos will start neurology service from the morning.
[2022-08-05] MEDS: PANTOPRAZOLE 40 MG TABLET PO SCH (06:23)
[2022-08-05] MEDS: FORMOTEROL FUMARATE 20 MCG/2 ML NEBU INHALATION SCH ×2 (08:23→20:02)
[2022-08-05] MEDS: BUDESONIDE 1 MG/2 ML NEBU INHALATION SCH ×2 (08:23→20:02)
[2022-08-05] MEDS: IPRATROPIUM-ALBUTEROL 3 ML NEB INHALATION SCH ×4 (08:24→20:02)
[2022-08-05] MEDS: SACUBITRIL/VALSARTAN 24 MG-26 MG TABLET PO SCH ×2 (08:32→21:15)
[2022-08-05] MEDS: APIXABAN 5 MG TAB PO SCH ×2 (08:32→21:15)
[2022-08-05] MEDS: SPIRONOLACTONE 25 MG TAB PO SCH (08:32)
[2022-08-05] MEDS: METOPROLOL TARTRATE 50 MG TAB PO SCH ×2 (08:33→21:16)
[2022-08-05 09:02] LABS: ALT 130 U/L (4-49); AST 66 U/L (17-59); African American GFR (CKD) >90 (>60 ml/min/1.73 sqM); Albumin 3.4 g/dL (3.5-5.0); Alkaline Phosphatase 246 U/L (38-126); Anion Gap 7 mmol/L; Blood Urea Nitrogen 11 mg/dL (9-20); Carbon Dioxide 27 mmol/L (22-30); Chloride 103 mmol/L (98-107); Glucose 106 mg/dL (74-99); Non-African American GFR(CKD) 90 (>60 ml/min/1.73 sqM); Potassium 4.2 mmol/L (3.5-5.1); Sodium 137 mmol/L (137-145); Total Protein 6.4 g/dL (6.3-8.2)
--- NOTE | 2022-08-05 09:10 | P.CNOR ---
History of Present Illness - [facility] Consult date: 08/05/22 Requesting physician: Amelie James Consult reason: other (Lumbar stenosis with bilateral lower extremity weakness) History of present illness: History of Presenting Illness Patient is a pleasant 76-year-old male who presented to the ER on 07/29/2022 due to generalized weakness. ER note states that patient was found on the ground in his home, last well-known time approximately 10 days prior to ER visit by a friend. Patient does have a medical history of former smoker, COPD, CHF, and Type 2 diabetes. Patient denies any orthopedic/surgical history. Patient states that he does live alone, he does not have any family. He states he does have friends and neighbors that do check in on him. Prior to this ER visit patient denies any falls or trauma. Patient is normally independent and ambulatory with a walker. Our services were consulted for lumbar stenosis and bilateral lower extremity weakness. Patient seen and examined this morning. Patient is resting comfortably in bed. He currently denies any low back pain, radicular pain, or numbness or tingling to the bilateral lower extremities. Patient denies any retention/loss of blad argelia or bowel. Overall patient states he has noticed improvement in his strength since admission. Patient has no acute concerns. He has been afebrile, denies nausea/vomiting, or chest pain. Review of Systems Pertinent positives and negatives as discussed in HPI, a complete review of systems was performed and all other systems are negative. Physical Examination Patient is alert and oriented 3 appears well-nourished well-hydrated is in no acute distress. They do not appear septic. On exam the patient has no tenderness to palpation of their thoracic or lumbar spine. There is no edema or ballottement sign. Lower extremities with 4-/5 strength in all major muscle groups Upper extremities show 5/5 strength in all major muscle groups. 2/4DTR all UE and LE b/l Patient shows a negative Homans, Elizalde's, negative Babinski's negative clonus bilaterally. Negative straight leg raise bilaterally. No tensioning signs. Cranial nerves II through XII are grossly intact. There is FROM that is painless of the b/l UE and LE in all major joints. They are intact to light touch sensation in L2 to S1 nerve distribution. Patient has palpable dorsalis pedis was posterior tibial pulses. Compartments are soft and compressible. Assessment and Plan MRI of the lumbar spine taken on 07/30/2022 demonstrates multilevel spondylitic and degenerative changes. Mild retrolisthesis L2 onto L3, L3 onto L4, L4 onto L5. Multilevel disc bulges, most prominent L4-L5 with ligamentum flavum buckling and facet arthropathy resulting in moderate central canal stenosis. Moderate bilateral neural foraminal stenosis L2-L5. Vertebral body heights are preserved. No acute osseous abnormalities. 1. Lumbar spondylosis 2. Mild grade 1 retrolisthesis L2-L3, L3-L4, L4-L5 3. L4-L5 central canal stenosis 4. Moderate bilateral foraminal stenosis L2-L5 5. Bilateral lower extremity weakness 6. Multiple comorbidities At this time we do not recommend any emergent/urgent orthopedic surgical intervention. Patient may follow-up with Dr. Patiño office for further evaluation as needed. Orthopedics is signing off at this time. Please do not hesitate to contact us for any further questions. -Appreciate medical management -Patient may benefit from trial of steroid -Recommend subacute rehab at discharge, patient may benefit for improving strength and balance -Continue with PT OT, weightbearing as tolerated. -Appreciate consult I reviewed and discussed this case with my attending Dr. Patiño, whom has reviewed this chart and films and is in agreement with assessment and plan of care as outlined above. I have personally seen and examined the patient, performed the documentation and the assessment and plan as written. Number of minutes spent on the visit: 20m. Past Medical History Past Medical History: No Reported History History of Any Multi-Drug Resistant Organisms: None Reported Past Surgical History: No Surgical Hx Reported Past Anesthesia/Blood Transfusion Reactions: No Reported Reaction Past Psychological History: No Psychological Hx Reported Smoking Status: Former smoker - Past Family History Mother Additional Family Medical History / Comment(s): of old age Father Family Medical History: Unable to Obtain Medications and Allergies Home Medications Medication Instructions Recorded Confirmed Type No Known Home Medications 07/29/22 07/29/22 History Allergies Allergy/AdvReac Type Severity Reaction Status Date / Time No Known Allergies Allergy Verified 07/29/22 17:44 Results - Labs Labs: Abnormal Lab Results - Last 24 Hours (Table) 08/04/22 Range/Units 09:25 BUN 8 L (9-20) mg/dL Glucose 144 H (74-99) mg/dL Calcium 8.3 L (8.4-10.2) mg/dL AST 70 H (17-59) U/L ALT 145 H (4-49) U/L Alkaline Phosphatase 264 H (38-126) U/L Total Protein 5.9 L (6.3-8.2) g/dL Albumin 3.0 L (3.5-5.0) g/dL Microbiology - Last 24 Hours (Table) 07/29/22 17:15 Blood Culture - Final Blood No Growth after 144 hours H & H 07/29/22 07/30/22 08/02/22 Range/Units 16:21 08:27 11:03 Hgb 18.0 H 14.2 D 14.9 (13.0-17.5) gm/dL Hct 54.9 H 43.0 45.5 (39.0-53.0) % 08/04/22 Range/Units 09:25 Hgb 13.6 (13.0-17.5) gm/dL Hct 41.7 (39.0-53.0) % Coagulation 07/29/22 Range/Units 16:21 INR 1.2 H (<1.2) Result Diagrams: 08/04/22 09:25 08/04/22 09:25
[2022-08-05] MEDS: DAPAGLIFLOZIN PROPANEDIOL 10 MG TABLET PO SCH (09:29)
--- NOTE | 2022-08-05 12:52 | P.PN ---
Subjective Progress Note Date: 08/05/22 CHIEF COMPLAINT: Elevated liver enzymes HISTORY OF PRESENT ILLNESS: Patient admitted to the hospital with stroke and atrial fibrillation. Followed by neurology and cardiology service. Surgical service consulted in regards to elevated LFTs. MRCP showing common bile duct dilatation with distal narrowing identified. This could be result previously passed gallstones with parenchymal scarring however there is decreased signal noted which could reflect distal calculus or polyp. Small contracted gallbl adder with midpole left fold noted. Patient continues to deny any abdominal pain. Denies any nausea or vomiting. Afebrile. Total bilirubin 1.0 AST 130 and ALT 246. LFTs continued to trend downwards PHYSICAL EXAM: VITAL SIGNS: Reviewed. GENERAL: Well-developed in no acute distress. HEENT: No sclera icterus. Extraocular movements grossly intact. Moist buccal mucosa. Head is atraumatic, normocephalic. ABDOMEN: Soft. Nondistended. Nontender. NEUROLOGIC: Alert and oriented. Cranial nerves II through XII grossly intact. ASSESSMENT: 1. Elevated LFTs with common bile duct dilatation noted on MRCP this could be related to passing a gallstone. PLAN: -Continue to monitor -Repeat LFTs in a.m. Physician Solvent Plant Operator note has been reviewed by physician. Signing provider agrees with the documented findings, assessment, and plan of care. Objective - Vital Signs Vital signs: Vital Signs Temp 98.0 F 08/05/22 12:00 Pulse 56 L 08/05/22 12:43 Resp 17 08/05/22 12:00 BP 129/55 08/05/22 12:00 Pulse Ox 97 08/05/22 12:00 FiO2 Intake & Output 08/04/22 08/05/22 08/05/22 18:59 06:59 18:59 Intake Total 600 120 Output Total 200 Balance 600 -200 120 Intake: Oral 600 120 Output: Urine 200 Other: Voiding Method Diaper Diaper Diaper # Voids 4 - Labs CBC & Chem 7: 08/04/22 09:25 08/05/22 08:03 Labs: Abnormal Lab Results - Last 24 Hours (Table) 08/05/22 Range/Units 08:03 Glucose 106 H (74-99) mg/dL AST 66 H (17-59) U/L ALT 130 H (4-49) U/L Alkaline Phosphatase 246 H (38-126) U/L Albumin 3.4 L (3.5-5.0) g/dL Microbiology - Last 24 Hours (Table) 07/29/22 17:15 Blood Culture - Final Blood No Growth after 144 hours
--- NOTE | 2022-08-05 14:49 | P.PN ---
Subjective Progress Note Date: 08/05/22 I am seeing the patient for the first time during this admission. Please refer to Dr. James's notes for further details. The patient has acute to subacute ischemic stroke over the left thalamus, left temporal and b/l occipital. It appears patient has microhemorrhage on MRI on 07/30. He had repeat CT head on 07/31 and no hemorhagic conversion. He was started on eliquis 5mg bid by Dr. James for new onset Atrial fibrillation yesterday morning. Per the nurse no change in neurological examination that is reported from yesterday. He is only oriented X1. Objective - Vital Signs Vital signs: Vital Signs Temp 98.0 F 08/05/22 12:00 Pulse 56 L 08/05/22 12:43 Resp 17 08/05/22 12:00 BP 129/55 08/05/22 12:00 Pulse Ox 97 08/05/22 12:00 FiO2 Intake & Output 08/04/22 08/05/22 08/05/22 18:59 06:59 18:59 Intake Total 600 240 Output Total 200 Balance 600 -200 240 Intake: Oral 600 240 Output: Urine 200 Other: Voiding Method Diaper Diaper Diaper # Voids 4 - Exam Neurological examination: Limited because of cooperation. The patient is awake, alert, oriented to self only. He stated the current month is May. Subtle right facial asymmetry. Has right pronator drift. - Labs CBC & Chem 7: 08/04/22 09:25 08/05/22 08:03 Labs: Abnormal Lab Results - Last 24 Hours (Table) 08/05/22 Range/Units 08:03 Glucose 106 H (74-99) mg/dL AST 66 H (17-59) U/L ALT 130 H (4-49) U/L Alkaline Phosphatase 246 H (38-126) U/L Albumin 3.4 L (3.5-5.0) g/dL Microbiology - Last 24 Hours (Table) 07/29/22 17:15 Blood Culture - Final Blood No Growth after 144 hours Assessment and Plan Assessment: * Acute/subacute ischemia within the left thalamus, left temporal lobe and bilateral occipital lobes consistent with embolic infarctions from cardiac source. Patient had presented with some mental confusion, slight aphasia and complete right homonymous hemianopia. * New onset atrial fibrillation * Borderline elevated cardiac enzymes. * A 3 month history of leg weakness, unclear cause. MRI of the lumbar spine showed moderate to severe central canal stenosis at L4-L5. Plan: * MRI brain revealed acute/subacute ischemia within the left thalamus, left temporal lobe and bilateral occipital lobes, corresponding to the recent CT. Susceptibility artifact identified within the bilateral thalami, left occipital lobe and left frontal lobe, consistent with microhemorrhage. * Repeat CT head performed 07/31/2022 reveals similar appearance of known left occipital lobe, temporal lobe, and thalamus ischemia without CT evidence for hemorrhagic conversion. * Continue aspirin 81 mg daily for now. * JALEN performed 07/31/2022 revealed dilated left atrium, with normal appearance of the left atrial appendage. Severely impaired left ventricular systolic function with global hypokinesis and EF 25-30%. Moderate mitral with [id number] tricuspid regurgitation. No shunting across the interatrial septum. * Patient started on Eliquis 5 mg twice a day on 08/04/[address] James. Aspirin discontinued after 08/03/2022. * MRI of the lumbar spine revealed moderate spinal stenosis at L4-L5 level. I personally reviewed MRI, and appears at least moderate to severe stenosis at this level. We will consult orthopedic spine for lumbar spinal stenosis, to get their opinion. * B12 1063, folate 40.0, hemoglobin A1c 5.9, lipid panel cholesterol 131, LDL 84, HDL 31 and triglycerides 74. Start Lipitor 40 mg daily. * EEG was mildly abnormal due to background slowing, suggestive of mild encephalopathy. No epileptiform activity was seen. * Stat 2-D echo revealed cardiomyopathy with severe left ventricle systolic dys function with EF 25-30%. Left atrium with mild dilation. Mild to moderate MR. Cardiology on board. * For DVT prophylaxis: On eliquis. * Patient is pending guardianship and then believed based in SNF. The plan is discussed with his nurse. Time with Patient: Less than 30
[2022-08-05] MEDS: SODIUM CHLORIDE 0.9% 1,000 ML IV SCH (15:41)
--- NOTE | 2022-08-05 15:51 | CDI ---
Documentation Clarification Form Date: 07/31/2022 11:55:00 AM From: Estela Sellers Admit Date: 07/29/2022 6:21:00 PM Patient Name: Haider Her Visit Number: [id number] Discharge Date: ATTENTION: The Clinical Documentation Specialists (CDI) and [facility] Coding Staff appreciate your assistance in clarifying documentation. Please respond to the clarification below the line at the bottom and electronically sign. The CDI & [facility] Coding staff will review the response and follow-up if needed. Please note: Queries are made part of the Legal Health Record. If you have any questions, please contact the author of this message via ITS. Dr. Alpesh Epps The patient was found on the floor at home by friends. Additional clarification is requested. History/Risk Factors: Patient found on floor by friends and not sure how long he was laying there. Patient lives alone. He was found to be in A-fib with possible stroke. Clinical Indicators: 07/30 CK level 188 Treatment: 1L 0.9 NS IV bolus on 07/29. IVF 0.9 NS @130/hr Please clarify if there is an additional diagnosis: [ ] Traumatic rhabdomyolysis due to fall [ ] Traumatic rhabdomyolysis due to prolonged immobility [ ] Other, please specify [ ] Unable to Determine MTDD
--- NOTE | 2022-08-05 15:52 | CDI ---
Documentation Clarification Form Date: 07/31/2022 11:57:00 AM From: Estela Sellers Phone: Admit Date: 07/29/2022 6:21:00 PM Patient Name: Haider Her Visit Number: [id number] Discharge Date: ATTENTION: The Clinical Documentation Specialists (CDI) and [facility] Coding Staff appreciate your assistance in clarifying documentation. Please respond to the clarification below the line at the bottom and electronically sign. The CDI & [facility] Coding staff will review the response and follow-up if needed. Please note: Queries are made part of the Legal Health Record. If you have any questions, please contact the author of this message via ITS. Dr. Alpesh Epps Moderate protein calorie malnutrition is documented in the 07/30 progress note which may lack sufficient clinical evidence/support in the medical record. Additional clarification is requested. History/Risk Factors: Patient found on floor by friends and not sure how long he was laying there. Patient lives alone. He was found to be in A-fib with possible stroke. Clinical Indicators: BMI 23.1 07/30 Consult: "Dehydration" 07/30 IM: "moderate protein-calorie malnutrition." No RD consult Treatment: Monitor vitamin levels. Currently NPO Please clarify if moderate protein calorie malnutrition is a valid diagnosis? [ ] Yes, moderate protein calorie malnutrition is present as evidenced by (additional clinical support): [ ] No, moderate protein calorie malnutrition is ruled out [ ] Other (please specify diagnosis) [ ] Unable to determine MTDD
--- NOTE | 2022-08-05 19:30 | P.PN ---
Subjective PROGRESS NOTE The patient is a 76-year-old male who presented with evidence of CVA, was noted to be in atrial flutter fibrillation of unknown duration. He underwent a JALEN that showed no evidence of intracardiac thrombus. He was found to have severely impaired systolic function. Clinically he is stable. He continues to have episodes of confusion but he denies any chest discomfort, dizziness or palpitations. His liver function test and his bilirubin are elevated but he denies any abdominal pain, nausea or vomiting. He is not anticoagulated yet awaiting recommendations from the neurology service. August 03: The patient is feeling better overall. He denies any chest discomfort, dizziness or palpitations. Hemodynamically he is stable. He had an abnormal HIDA scan yesterday. His repeat bilirubin is better today. He denies any abdominal discomfort. He denies any nausea or vomiting. He continues to be in atrial fibrillation with controlled ventricular response. August 04: The patient feels better today, he appears to be more awake. His bilirubin is down. He continues to be hemodynamically stable. He denies any chest discomfo rt, dizziness or palpitations. He was started on anticoagulation today. The patient has evidence of cardiomyopathy of unknown etiology but he has no evidence of acute CHF at this time. 08/05 Patient seen and examined. Patient appears somewhat confused however better than before. Denies any chest pain or pressure. Back in sinus rhythm, sinus bradycardia on telemetry. PHYSICAL EXAMINATION: Vitals reviewed LUNGS: Clear to auscultation HEART: Regular rate and rhythm, S1, S2. No S3. systolic ejection murmur ABDOMEN: Soft, nontender, no organomegaly EXTREMETIES: No edema IMPRESSION: 1. Acute CVA, stable 2. Atrial fibrillation of unknown duration, back in sinus mechanism, anticoagulation started yesterday 3. Elevated bilirubin and abnormal liver function test etiology unclear, improved. Possible common hepatic duct stricture, possible passing of gallstones 4. Cardiomyopathy, unclear etiology PLAN: Continue current medical therapy. Appears euvolemic. Continue optimize heart failure regimen as able. New onset cardiomyopathy may be worked up as an outpatient. Objective - Vital Signs Vital signs: Vital Signs Temp 97.8 F 08/05/22 15:40 Pulse 50 L 08/05/22 15:40 Resp 17 08/05/22 15:40 BP 128/80 08/05/22 15:40 Pulse Ox 94 L 08/05/22 15:40 FiO2 Intake & Output 04/24/23 04/24/23 04/25/23 06:59 18:59 06:59 Intake Total 840 Output Total 200 Balance -200 840 Intake: Oral 840 Output: Urine 200 Other: Voiding Method Diaper Diaper # Voids 4 3 - Labs CBC & Chem 7: 08/04/22 09:25 08/05/22 08:03 Labs: Abnormal Lab Results - Last 24 Hours (Table) 08/05/22 Range/Units 08:03 Glucose 106 H (74-99) mg/dL AST 66 H (17-59) U/L ALT 130 H (4-49) U/L Alkaline Phosphatase 246 H (38-126) U/L Albumin 3.4 L (3.5-5.0) g/dL Microbiology - Last 24 Hours (Table) 07/29/22 17:15 Blood Culture - Final Blood No Growth after 144 hours
--- NOTE | 2022-08-06 02:02 | PN ---
PROGRESS NOTE SUBJECTIVE: This 76-year-old white male came in with acute onset systolic CHF, atrial fibrillation with RVR, DuoNeb for COPD, Eliquis 5 mg b.i.d. for atrial fibrillation, stroke prophylaxis, Pulmicort for his breathing 1 g b.i.d., Farxiga for CHF, Perforomist for COPD, Lopressor for hypertension, tachycardia, Protonix for GERD prophylaxis, Entresto 25/26 b.i.d. for CHF systolic, Aldactone 25 mg of systolic CHF, Ambien for insomnia. OBJECTIVE: VITAL SIGNS: Temp 98 to 97, pulse 50s to 60s, respiratory rate 16 to 18, blood pressure is 120s to 140s over 80s, O2 94 to 95 on room air. CARDIOVASCULAR: Irregularly irregular rhythm. S1, S2. LUNGS: Scattered rhonchi and wheeze. Clear. PSYCH: Poor mood and affect. NEUROLOGIC: Alert and oriented x3. GI: Soft. His bilirubin is slowly improving also. He has cardiomyopathy, unclear etiology. He has sinus bradycardia on telemetry currently. He says he is breathing better. He possibly has acute hepatic duct stricture with possible passing of gallstones, cardiomyopathy, unclear etiology, COPD. PLAN: Continue with PT, OT possible rehab placement. Blood cultures are negative. Liver enzymes are pending now. Prognosis guarded. MMODL / IJN: [id number] /
[2022-08-06] MEDS: PANTOPRAZOLE 40 MG TABLET PO SCH (06:39)
[2022-08-06] MEDS: METOPROLOL TARTRATE 50 MG TAB PO SCH ×2 (09:28→21:21)
[2022-08-06] MEDS: DAPAGLIFLOZIN PROPANEDIOL 10 MG TABLET PO SCH (09:28)
[2022-08-06] MEDS: SPIRONOLACTONE 25 MG TAB PO SCH (09:28)
[2022-08-06] MEDS: APIXABAN 5 MG TAB PO SCH ×2 (09:28→21:21)
[2022-08-06] MEDS: SACUBITRIL/VALSARTAN 24 MG-26 MG TABLET PO SCH ×2 (09:29→21:21)
[2022-08-06 09:43] LABS: Basophils % (A) 0 %; Eosinophils # (A) 0.3 k/uL (0-0.7); Eosinophils % (A) 3 %; HCT 46.4 % (39.0-53.0); HGB 15.4 gm/dL (13.0-17.5); Lymphocytes # (A) 2.5 k/uL (1.0-4.8); Lymphocytes % (A) 24 %; MCH 30.1 pg (25.0-35.0); MCHC 33.1 g/dL (31.0-37.0); MCV 90.9 fL (80.0-100.0); Mean Platelet Volume 9.7; Monocytes # (A) 0.6 k/uL (0-1.0); Monocytes % (A) 6 %; Neutrophils # (A) 6.9 k/uL (1.3-7.7); Neutrophils % (A) 66 %; Platelet Count 314 k/uL (150-450); RBC 5.11 m/uL (4.30-5.90); WBC 10.5 k/uL (3.8-10.6)
[2022-08-06] MEDS: BUDESONIDE 1 MG/2 ML NEBU INHALATION SCH ×2 (09:53→21:04)
[2022-08-06] MEDS: FORMOTEROL FUMARATE 20 MCG/2 ML NEBU INHALATION SCH ×2 (09:53→21:03)
[2022-08-06] MEDS: IPRATROPIUM-ALBUTEROL 3 ML NEB INHALATION SCH ×4 (09:53→21:04)
[2022-08-06 10:14] LABS: ALT 126 U/L (4-49); AST 79 U/L (17-59); African American GFR (CKD) >90 (>60 ml/min/1.73 sqM); Albumin 3.4 g/dL (3.5-5.0); Alkaline Phosphatase 222 U/L (38-126); Anion Gap 7 mmol/L; Blood Urea Nitrogen 13 mg/dL (9-20); Calcium 9.3 mg/dL (8.4-10.2); Carbon Dioxide 25 mmol/L (22-30); Chloride 104 mmol/L (98-107); Glucose 110 mg/dL (74-99); Non-African American GFR(CKD) >90 (>60 ml/min/1.73 sqM); Potassium 4.2 mmol/L (3.5-5.1); Sodium 136 mmol/L (137-145); Total Bilirubin 1.1 mg/dL (0.2-1.3); Total Protein 6.6 g/dL (6.3-8.2)
--- NOTE | 2022-08-06 11:43 | P.PN ---
Subjective Progress Note Date: 08/06/22 CHIEF COMPLAINT: Elevated liver enzymes HISTORY OF PRESENT ILLNESS: Patient admitted to the hospital with stroke and atrial fibrillation. Followed by neurology and cardiology service. Surgical service consulted in regards to elevated LFTs. MRCP showing common bile duct dilatation with distal narrowing identified. This could be result previously passed gallstones with parenchymal scarring however there is decreased signal noted which could reflect distal calculus or polyp. Small contracted gallbl adder with midpole left fold noted. Patient continues to deny any abdominal pain. Denies any nausea or vomiting. Afebrile. Total bili 1.1 AST 79 ALT 126 alk phos 122. LFTs continue to trend downwards. AST slightly up from 66-79. Patient awaiting ECF placement PHYSICAL EXAM: VITAL SIGNS: Reviewed. GENERAL: Well-developed in no acute distress. HEENT: No sclera icterus. Extraocular movements grossly intact. Moist buccal mucosa. Head is atraumatic, normocephalic. ABDOMEN: Soft. Nondistended. Nontender. NEUROLOGIC: Alert and oriented. Cranial nerves II through XII grossly intact. ASSESSMENT: 1. Elevated LFTs with common bile duct dilatation noted on MRCP this could be related to passing a gallstone. PLAN: -No surgical intervention planned -Continue regular diet Physician Metal Numerical Tool Programmer note has been reviewed by physician. Signing provider agrees with the documented findings, assessment, and plan of care. Objective - Vital Signs Vital signs: Vital Signs Temp 97.4 F L 08/06/22 09:25 Pulse 60 08/06/22 10:12 Resp 16 08/06/22 09:25 BP 114/67 08/06/22 09:25 Pulse Ox 90 L 08/06/22 09:53 FiO2 Intake & Output 08/05/22 08/06/22 08/06/22 18:59 06:59 18:59 Intake Total 840 0 Balance 840 0 Intake: Oral 840 0 Other: Voiding Method Diaper Diaper Diaper External Catheter External Catheter # Voids 3 1 - Labs CBC & Chem 7: 08/06/22 09:10 08/06/22 09:10 Labs: Abnormal Lab Results - Last 24 Hours (Table) 08/06/22 Range/Units 09:10 Sodium 136 L (137-145) mmol/L Glucose 110 H (74-99) mg/dL AST 79 H (17-59) U/L ALT 126 H (4-49) U/L Alkaline Phosphatase 222 H (38-126) U/L Albumin 3.4 L (3.5-5.0) g/dL
--- NOTE | 2022-08-06 19:21 | P.PN ---
Subjective Progress Note Date: 08/06/22 PROGRESS NOTE The patient is a 76-year-old male who presented with evidence of CVA, was noted to be in atrial flutter fibrillation of unknown duration. He underwent a JALEN that showed no evidence of intracardiac thrombus. He was found to have severely impaired systolic function. Clinically he is stable. He continues to have episodes of confusion but he denies any chest discomfort, dizziness or palpit ations. His liver function test and his bilirubin are elevated but he denies any abdominal pain, nausea or vomiting. He is not anticoagulated yet awaiting recommendations from the neurology service. August 03: The patient is feeling better overall. He denies any chest discomfort, dizziness or palpitations. Hemodynamically he is stable. He had an abnormal HIDA scan yesterday. His repeat bilirubin is better today. He denies any abdominal discomfort. He denies any nausea or vomiting. He continues to be in atrial fibrillation with controlled ventricular response. August 04: The patient feels better today, he appears to be more awake. His bilirubin is down. He continues to be hemodynamically stable. He denies any chest discomfort, dizziness or palpitations. He was started on anticoagulation today. The patient has evidence of cardiomyopathy of unknown etiology but he has no evidence of acute CHF at this time. 08/05 Patient seen and examined. Patient appears somewhat confused however better than before. Denies any chest pain or pressure. Back in sinus rhythm, sinus bradycardia on telemetry. 08/06 Some confusion. More frequent PVCs on tele, however, metoprolol was held last n ight due to bradycardia. Denies any chest pain or shortness of breath. Some confusion. PHYSICAL EXAMINATION: Vitals reviewed LUNGS: Clear to auscultation HEART: Regular rate and rhythm, S1, S2. No S3. systolic ejection murmur ABDOMEN: Soft, nontender, no organomegaly EXTREMETIES: No edema IMPRESSION: 1. Acute CVA, stable 2. Atrial fibrillation of unknown duration, back in sinus mechanism, a nticoagulation started 3. Elevated bilirubin and abnormal liver function test etiology unclear, im proved. Possible common hepatic duct stricture, possible passing of gallstones 4. Cardiomyopathy, unclear etiology, EF 25-30% PLAN: Continue current medical therapy. New onset cardiomyopathy may be worked up as an outpatient. Appears stable on current heart failure regimen and euvolemic. No further changes from a cardiology standpoint. Followup outpt. Please call with questions. Objective - Vital Signs Vital signs: Vital Signs Temp 98.3 F 08/05/22 21:03 Pulse 93 08/06/22 03:30 Resp 15 08/06/22 03:30 BP 128/76 08/06/22 03:30 Pulse Ox 97 08/06/22 03:30 FiO2 Intake & Output 08/05/22 08/06/22 08/06/22 18:59 06:59 18:59 Intake Total 840 0 Balance 840 0 Intake: Oral 840 0 Other: Voiding Method Diaper Diaper External Catheter # Voids 3 1 - Labs CBC & Chem 7: 08/06/22 09:10 08/06/22 09:10
[2022-08-06] MEDS: SODIUM CHLORIDE 0.9% 1,000 ML IV SCH (20:52)
[2022-08-07] MEDS: PANTOPRAZOLE 40 MG TABLET PO SCH (06:20)
[2022-08-07] MEDS: SODIUM CHLORIDE 0.9% 1,000 ML IV SCH (07:39)
[2022-08-07] MEDS: METOPROLOL TARTRATE 50 MG TAB PO SCH ×2 (07:57→20:02)
[2022-08-07] MEDS: DAPAGLIFLOZIN PROPANEDIOL 10 MG TABLET PO SCH (07:57)
[2022-08-07] MEDS: SPIRONOLACTONE 25 MG TAB PO SCH (07:57)
[2022-08-07] MEDS: SACUBITRIL/VALSARTAN 24 MG-26 MG TABLET PO SCH ×2 (07:57→20:01)
[2022-08-07] MEDS: APIXABAN 5 MG TAB PO SCH ×2 (07:57→20:01)
[2022-08-07 08:00] VITALS: RESP 16
[2022-08-07] MEDS: BUDESONIDE 1 MG/2 ML NEBU INHALATION SCH ×2 (09:27→20:08)
[2022-08-07] MEDS: IPRATROPIUM-ALBUTEROL 3 ML NEB INHALATION SCH ×4 (09:27→20:08)
[2022-08-07] MEDS: FORMOTEROL FUMARATE 20 MCG/2 ML NEBU INHALATION SCH ×2 (09:27→20:08)
--- NOTE | 2022-08-07 11:43 | P.PN ---
Subjective Progress Note Date: 08/07/22 CHIEF COMPLAINT: Elevated liver enzymes HISTORY OF PRESENT ILLNESS: Patient admitted to the hospital with stroke and atrial fibrillation. Followed by neurology and cardiology service. Surgical service consulted in regards to elevated LFTs. MRCP showing common bile duct dilatation with distal narrowing identified. This could be result previously passed gallstones with parenchymal scarring however there is decreased signal noted which could reflect distal calculus or polyp. Small contracted gallbl adder with midpole left fold noted. Patient continues to deny any abdominal pain. Denies any nausea or vomiting. Afebrile. Total bili remains normal as of yesterday. LFTs that showed improvement. They're working on ECF placement for patient PHYSICAL EXAM: VITAL SIGNS: Reviewed. GENERAL: Well-developed in no acute distress. HEENT: No sclera icterus. Extraocular movements grossly intact. Moist buccal mucosa. Head is atraumatic, normocephalic. ABDOMEN: Soft. Nondistended. Nontender. NEUROLOGIC: Alert and oriented. Cranial nerves II through XII grossly intact. ASSESSMENT: 1. Elevated LFTs with common bile duct dilatation noted on MRCP this could be related to passing a gallstone. PLAN: -No surgical intervention planned -Continue regular diet -Surgical service will sign off. Please call with any questions or concerns. Physician Case Supervisor note has been reviewed by physician. Signing provider agrees with the documented findings, assessment, and plan of care. Objective - Vital Signs Vital signs: Vital Signs Temp 97.3 F L 08/07/22 11:13 Pulse 55 L 08/07/22 11:13 Resp 16 08/07/22 11:13 BP 112/69 08/07/22 11:13 Pulse Ox 95 08/07/22 11:13 FiO2 Intake & Output 08/06/22 08/07/22 08/07/22 18:59 06:59 18:59 Intake Total 236 118 Balance 236 118 Weight 81.647 kg Intake: Oral 236 118 Other: Voiding Method Diaper Diaper Diaper External Catheter # Voids 2 1 - Labs CBC & Chem 7: 08/06/22 09:10 08/06/22 09:10
--- NOTE | 2022-08-07 19:41 | P.PN ---
Subjective Progress Note Date: 08/07/22 The patient seen at bedside and he was lying in bed and states she's doing well. Denies of any headache, nausea vomiting. Denies of any new neurological issues. Objective - Vital Signs Vital signs: Vital Signs Temp 97.8 F 08/07/22 15:33 Pulse 52 L 08/07/22 16:16 Resp 16 08/07/22 18:44 BP 107/70 08/07/22 15:33 Pulse Ox 96 08/07/22 18:44 FiO2 Intake & Output 08/07/22 08/07/22 08/08/22 06:59 18:59 06:59 Intake Total 594 Balance 594 Intake: Oral 594 Other: Voiding Method Diaper Diaper # Voids 1 1 - Exam Neurological examination: The patient is awake, alert, oriented to self only. Patient kept on stating that [place] Has some expressive and appears expressive. Patient is able to follow simple commands. He is able to name pen and watch. Subtle right facial asymmetry. Has right pronator drift. Otherwise looks in all extremities above gravity. - Labs CBC & Chem 7: 08/06/22 09:10 08/06/22 09:10 Assessment and Plan Assessment: * Acute/subacute ischemia within the left thalamus, left temporal lobe and bilat eral occipital lobes consistent with embolic infarctions from cardiac source. Patient had presented with some mental confusion, slight aphasia and complete right homonymous hemianopia. * New onset atrial fibrillation * Borderline elevated cardiac enzymes. * A 3 month history of leg weakness, unclear cause. MRI of the lumbar spine showed moderate to severe central canal stenosis at L4-L5. Plan: * MRI brain revealed acute/subacute ischemia within the left thalamus, left temporal lobe and bilateral occipital lobes, corresponding to the recent CT. Susceptibility artifact identified within the bilateral thalami, left occipital lobe and left frontal lobe, consistent with microhemorrhage. * Repeat CT head performed 07/31/2022 reveals similar appearance of known left occipital lobe, temporal lobe, and thalamus ischemia without CT evidence for hemorrhagic conversion. * JALEN performed 07/31/2022 revealed dilated left atrium, with normal appearance of the left atrial appendage. Severely impaired left ventricular systolic function with global hypokinesis and EF 25-30%. Moderate mitral with [id number] tricuspid regurgitation. No shunting across the interatrial septum. * Patient started on Eliquis 5 mg twice a day on 08/04/[address] James. Aspirin discontinued after 08/03/2022. * MRI of the lumbar spine revealed moderate spinal stenosis at L4-L5 level. I personally reviewed MRI, and appears at least moderate to severe stenosis at this level. We will consult orthopedic spine for lumbar spinal stenosis, to get their opinion. * B12 1063, folate 40.0, hemoglobin A1c 5.9, lipid panel cholesterol 131, LDL 84, HDL 31 and triglycerides 74. Start Lipitor 40 mg daily. * EEG was mildly abnormal due to background slowing, suggestive of mild encephalopathy. No epileptiform activity was seen. * Stat 2-D echo revealed cardiomyopathy with severe left ventricle systolic dysfunction with EF 25-30%. Left atrium with mild dilation. Mild to moderate MR. Cardiology on board. * For DVT prophylaxis: On eliquis. * Patient is pending guardianship and then believed based in SNF. * Recommend the patient to follow-up with neurologist as outpatient within 1-2 weeks. There is no other neurological work-up. Will follow-up with patient sporadically if continues to be in the hospital. Time with Patient: Less than 30
--- NOTE | 2022-08-08 06:25 | DS ---
DISCHARGE SUMMARY DISCHARGE MEDICATIONS: 1. Entresto / b.i.d. 2. Farxiga 10 mg daily. 3. Lopressor 50 b.i.d. 4. Perforomist 20 mcg inhalation b.i.d. 5. Protonix 40 mg daily. 6. Aldactone 25 mg daily. 7. DuoNeb q.i.d. 8. Eliquis 5 mg b.i.d. 9. Pulmicort 1 mg b.i.d. 10.Metoprolol 50 b.i.d. CONDITION: Stable. PROGNOSIS: Guarded. Ambulate as tolerated. HOSPITAL COURSE: The patient came to the hospital with atrial fibrillation, rapid ventricular response, acute systolic CHF, COPD, acute ischemic stroke. He was seen by Neurologist as well as Surgeon for possible gallstone cholecystitis, which elevated bilirubin resolved on its own with fluids, systolic CHF, atrial fibrillation, COPD, acute ischemic stroke, was all treated with medications as mentioned above. He had a cholangiopancreatography MRI, which was cleared. The patient was stabilized from medical standpoint. He was also seen by a Neurosurgeon for lumbar disk disease and gait imbalance. Dr. Patiño saw the patient. [facility]. The patient has multiple comorbidities, he has spondylolytic degenerative changes and L4-L5 lumbar disk diseases, moderate foraminal stenosis at L2-L5, osteoarthritis. Prognosis guarded. He will follow up as an outpatient. MMYLUYL / DAHIANAN: [id number] /
[2022-08-08] MEDS: PANTOPRAZOLE 40 MG TABLET PO SCH (06:44)
[2022-08-08] MEDS: SPIRONOLACTONE 25 MG TAB PO SCH (08:37)
[2022-08-08] MEDS: SACUBITRIL/VALSARTAN 24 MG-26 MG TABLET PO SCH (08:38)
[2022-08-08] MEDS: DAPAGLIFLOZIN PROPANEDIOL 10 MG TABLET PO SCH (08:38)
[2022-08-08] MEDS: METOPROLOL TARTRATE 50 MG TAB PO SCH (08:38)
[2022-08-08] MEDS: APIXABAN 5 MG TAB PO SCH (08:38)
[2022-08-08] MEDS: SODIUM CHLORIDE 0.9% 1,000 ML IV SCH (08:41)
[2022-08-08] MEDS: FORMOTEROL FUMARATE 20 MCG/2 ML NEBU INHALATION SCH (08:55)
[2022-08-08] MEDS: BUDESONIDE 1 MG/2 ML NEBU INHALATION SCH (08:55)
[2022-08-08] MEDS: IPRATROPIUM-ALBUTEROL 3 ML NEB INHALATION SCH ×3 (08:55→16:05)
[2022-08-08 16:02] VITALS: BP 132/87; TEMP 97.5
[2022-08-08 16:16] VITALS: PULSE 72
== END 2022-08-08 17:30 | disposition home or self-care (01) | DRG 64 ==
LOC: EC 15:51 → 3SCARD 18:21 → EDBD 18:21 → 3SCARD 20:26
PROVIDERS: ADMIT Family Medicine; ATTEND Family Medicine
PROC: B246ZZ4 Ultrasonography of Right and Left Heart, Transesophageal (ICD-10-PCS; principal; 2022-07-31 15:35)
DX: I63.432 Cerebral infarction due to embolism of left posterior cerebral artery (principal); I21.A1 Myocardial infarction type 2; J96.01 Acute respiratory failure with hypoxia; I50.21 Acute systolic (congestive) heart failure; E87.20 Acidosis, unspecified; E87.1 Hypo-osmolality and hyponatremia; E44.0 Moderate protein-calorie malnutrition; J44.1 Chronic obstructive pulmonary disease with (acute) exacerbation; E86.0 Dehydration; D75.1 Secondary polycythemia; Z60.2 Problems related to living alone; Z68.23 Body mass index [BMI] 23.0-23.9, adult; I11.0 Hypertensive heart disease with heart failure; M51.36 Other intervertebral disc degeneration, lumbar region; H53.461 Homonymous bilateral field defects, right side; M48.061 Spinal stenosis, lumbar region without neurogenic claudication; Z71.3 Dietary counseling and surveillance; Z20.822 Contact with and (suspected) exposure to COVID-19; I08.1 Rheumatic disorders of both mitral and tricuspid valves; I48.91 Unspecified atrial fibrillation; R94.5 Abnormal results of liver function studies; F17.210 Nicotine dependence, cigarettes, uncomplicated; M43.16 Spondylolisthesis, lumbar region; K21.9 Gastro-esophageal reflux disease without esophagitis; M48.02 Spinal stenosis, cervical region; M40.202 Unspecified kyphosis, cervical region; Z66 Do not resuscitate
CPT/HCPCS: 36415; 70450; 70551; 71046; 71250; 72125; 72148; 74181; 76700; 78226; 80048; 80053; 80061; 80074; 82140; 82550; 82607; 82746; 82977; 83036; 83605; 83735; 83880; 84145; 84443; 84484; 85025; 85027; 85610; 85730; 87040; 87635; 87636; 93005; 93306; 93312; 93320; 93325; 94640; 94760; 95816; 96365; 96366; 96367; 96368; 96375; 99291